=== PATIENT | male | born 1970 | race Caucasian/White ===

== ENCOUNTER 2022-10-21 21:48 | Inpatient (IN) ==
[2022-10-21] MEDS ORDERED: SODIUM CHLORIDE 0.9% 1000ML 1,000 ML IV ONE (22:09)
[2022-10-21] MEDS ORDERED: ONDANSETRON INJ 2 MG/ML 2 ML VIAL IV STA (22:10)
[2022-10-21] MEDS ORDERED: fentaNYL citrate 100 MCG/2 ML VIAL IV STA (22:10)
[2022-10-21] MEDS ORDERED: SODIUM CHLORIDE 0.9% 1000ML 1,000 ML IV SCH (22:15)
--- NOTE | 2022-10-21 22:19 | Emergency Department Note ---
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 Patient states is not responded to chemo and he received this oncologist next week at [facility] to discuss other options. He comes in tonight as he feels extremely dehydrated and has not been able to swallow. He keeps on vomiting everything up. This appears to be new. He states his abdominal pain is gotten worse since last ER visit. Palpation makes it worse nothing makes it better. Patient denies chest pain, fevers, neck stiffness, flulike illness. is present to also give the history. Home Medications Medication Instructions Recorded Confirmed Type lisinopril 20 mg tablet 20 mg PO DAILY 05/21/22 05/21/22 History Allergies Allergy/AdvReac Type Severity Reaction Status Date / Time No Known Allergies Allergy Verified 05/21/22 10:13 Past Med/Surg History Medical History Umbilical hernia Family History Father Prostate cancer Social History Smoking Status: Never smoker Hx Alcohol Use: Yes Preferred Language: Polish marital status: current occupational status: employed current occupation: [employer] Feels Safe at Home: Yes Review of Systems A total of 10 systems reviewed and were otherwise negative Physical Exam Vital Signs Vital Signs - 24 hr 10/21/22 21:49 10/21/22 22:21 10/21/22 23:18 Pulse Rate 107 H Pulse Rate from SpO2 Sensor Pulse Rhythm Regular Pulse Strength Normal Respiratory Rate 19 Respiratory Effort / Characteristics Non-Labored Spontaneous Respiratory Depth Normal Respiratory Pattern Regular Blood Pressure 79/55 L Blood Pressure Mean 63 Pulse Oximetry 99 Oxygen Delivery Method Room Air Room Air Room Air Sepsis Recent Fever Within 48 Hours No Sepsis New/Unexplained Change in Mental Status N/A Sepsis Action Taken by Nursing No Action Required 10/21/22 22:02 10/21/22 22:30 10/21/22 22:42 Pulse Rate 107 H 113 H 104 H Pulse Rate from SpO2 Sensor 107 H 110 H 104 H Pulse Rhythm Pulse Strength Respiratory Rate 17 22 15 Respiratory Effort / Characteristics Respiratory Depth Respiratory Pattern Blood Pressure Blood Pressure Mean Pulse Oximetry 98 97 95 Oxygen Delivery Method Sepsis Recent Fever Within 48 Hours Sepsis New/Unexplained Change in Mental Status Sepsis Action Taken by Nursing 10/21/22 22:42 10/21/22 23:00 10/22/22 00:17 Pulse Rate 99 H Pulse Rate from SpO2 Sensor 99 H Pulse Rhythm Pulse Strength Respiratory Rate 18 Respiratory Effort / Characteristics Non-Labored Spontaneous Accessory Muscle Use Respiratory Depth Respiratory Pattern Blood Pressure 133/80 101/75 Blood Pressure Mean 97 83 Pulse Oximetry 96 Oxygen Delivery Method Sepsis Recent Fever Within 48 Hours Sepsis New/Unexplained Change in Mental Status Sepsis Action Taken by Nursing 10/21/22 23:30 10/22/22 00:00 10/22/22 00:38 Pulse Rate 93 H 94 H 100 H Pulse Rate from SpO2 Sensor 96 H 95 H Pulse Rhythm Pulse Strength Respiratory Rate 14 21 8 L Respiratory Effort / Characteristics Respiratory Depth Respiratory Pattern Blood Pressure 116/86 Blood Pressure Mean 96 Pulse Oximetry 98 100 Oxygen Delivery Method Sepsis Recent Fever Within 48 Hours Sepsis New/Unexplained Change in Mental Status Sepsis Action Taken by Nursing VITALS: Vitals are noted on the nurse's note and reviewed by myself. Vital signs hypertensive and tachycardic. GENERAL: Pale cachectic appearing gentleman who appears in pain SKIN: The skin was without rashes, erythema, edema, or bruising. There is no tenting of the skin. Capillary reflex less than 2 seconds. HEAD: Normocephalic atraumatic. EARS: External auditory canals clear, EYES: Pupils equal round and reactive to light and accommodation. Conjunctivae without injection, sclerae without icterus. Extraocular movements intact. NOSE: Patent, turbinates without inflammation or discharge. MOUTH: Mucous membranes moist. Pharynx without erythema or exudate. Uvula midline. Airway patent. Tongue does not deviate. NECK: Supple without nuchal rigidity. No lymphadenopathy. No thyromegaly. Cervical spine is nontender. No JVD. HEART: Regular rate and rhythm LUNGS: Clear to auscultation bilaterally without wheezes, rales or rhonchi. No retractions or accessory muscle use. ABDOMEN: Positive bowel sounds x 4. Normal tympanic percussion. Soft, biliary drain intact, diffusely tender to palpation with increased pain on the left abdomen. Flores sign negative. No guarding or rebound tenderness. No CVA tenderness MUSCULOSKELETAL: No muscle atrophy, erythema, or edema noted. NEURO: Patient was alert and oriented to person place and time. Normal sensation to light and sharp touch. No focal neurological deficits. Course Administered Medications Fentanyl Citrate (Fentanyl Citrate 100 Mcg/2 Ml Vial) 50 mcg IV Q15M PRN PRN Reason: Pain Stop: 11/05/22 00:55 Last Admin: 10/22/22 01:23 Dose: 50 mcg Documented By: KALEY Discontinued Medications Dextrose (Dextrose 50% 50 Ml Syringe) 50 ml IV NOW STA Stop: 10/22/22 00:18 Last Admin: 10/22/22 01:25 Dose: 50 ml Documented By: KALEY Fentanyl Citrate (Fentanyl Citrate 100 Mcg/2 Ml Vial) 50 mcg IV NOW STA Stop: 10/21/22 22:11 Last Admin: 10/21/22 22:35 Dose: 50 mcg Documented By: KALEY Sodium Chloride (Nss 1000ml) 1,000 mls @ 999 mls/hr IV .Q1H1M NOEMÍ Stop: 10/21/22 23:15 Last Admin: 10/21/22 22:36 Dose: 999 mls/hr Documented By: KALEY Sodium Chloride (Nss 1000ml) 1,000 mls @ 999 mls/hr IV .Q1H1M ONE Stop: 10/21/22 23:09 Last Admin: 10/21/22 22:36 Dose: 999 mls/hr Documented By: KALEY Insulin Human Regular 10 units (/ Syringe) 9.9 mls @ 3 mls/sec IV ONE STA Stop: 10/22/22 00:18 Last Admin: 10/22/22 01:24 Dose: 3 mls/sec Documented By: KALEY Co-signed By: Ioversol (Optiray 350 100ml) 100 ml IV ONCE ONE Stop: 10/22/22 00:46 Last Admin: 10/22/22 00:46 Dose: 86 ml Documented By: DOROTEO Ondansetron HCl (Ondansetron Inj 2 Mg/Ml 2 Ml Vial) 4 mg IV NOW STA Stop: 10/21/22 22:11 Last Admin: 10/21/22 22:35 Dose: 4 mg Documented By: KALEY Medical Decision Making Medical Records Attestation: I reviewed the patient's medical records. Home Medications Current Medication List: was personally reviewed by me Laboratory Data Attestation: I reviewed the patient's lab results. 10/21/22 22:30 10/22/22 00:09 Lab Results 10/21/22 10/21/22 10/21/22 Range/Units 22:30 22:30 22:30 WBC 4.19 L (4.8-10.8) K/ul RBC 4.37 L (4.70-6.10) M/uL Hgb 13.1 L (14.0-18.0) g/dl POC Hgb (14.0-18.0) g/dl Hct 38.1 L (42.0-52.0) % POC Hct (42-52) % MCV 87.2 (80.0-100.0) fL MCH 30.0 (25.0-34.0) pg MCHC 34.4 (32.0-36.0) g/dL RDW Std Deviation 50.1 H (36.4-46.3) fL RDW Coeff of Liliana 15.7 H (11.5-14.5) % Plt Count 423 H (130-400) K/uL MPV 10.2 (9.4-12.4) fL Immature Gran % (Auto) 1.4 % Neut % (Auto) 64.8 % Lymph % (Auto) 7.6 % Baker % (Auto) 25.3 % Eos % (Auto) 0.2 % Baso % (Auto) 0.7 % Neut # (Auto) 2.71 (1.40-6.50) K/uL Lymph # (Auto) 0.32 L (1.2-3.4) K/uL Baker # (Auto) 1.06 H (0.11-0.59) K/uL Eos # (Auto) 0.01 (0-0.50) K/uL Baso # (Auto) 0.03 (0-0.2) K/uL Immature Gran # (Auto) 0.06 (0.01-0.20) K/uL PT 13.4 H (9.0-12.0) Seconds INR 1.3 H (0.9-1.1) APTT 33.0 H (21.0-31.0) Seconds PTT Ratio 1.2 POC Sodium (135-144) mmol/L Sodium 127 L (136-145) mmol/L POC Potassium (3.3-5.0) mmol/L Potassium 6.8 H* (3.5-5.1) mmol/L POC Chloride (101-112) mmol/L Chloride 102 (98-107) mmol/L Carbon Dioxide 15 L (21-32) mmol/L POC Total CO2 (24-31) mmol/L Anion Gap 10 (3-11) POC Anion Gap (16-25) mmol/L POC BUN (7-18) mg/dl BUN 37 H (6-23) mg/dl Creatinine 1.63 H (0.6-1.4) mg/dl POC Creatinine (0.6-1.3) mg/dl Est Cr Clr Drug Dosing 55.4 ml/min Est GFR ( Amer) 55.7 ml/min Est GFR (Non-Af Amer) 48.1 ml/min BUN/Creatinine Ratio 22.7 H (10-20) Glucose 132 H (70-99(Fasting)) mg/dl POC Glucose (other) (70-99) mg/dl Lactate (0.4-2.0) mmol/L Calcium 10.0 (8.5-10.1) mg/dl POC Ioniz Calcium Eusebio (1.12-1.32) mmol/l Magnesium 2.7 H (1.7-2.4) mg/dl Total Bilirubin 1.2 H (0.2-1.0) mg/dl Direct Bilirubin 0.6 H (0-0.2) mg/dl AST 28 (13-39) U/L ALT 57 H (7-52) U/L Alkaline Phosphatase 366 H (34-104) U/L Troponin I High Sens 12.6 (0-20) pg/ml Total Protein 9.2 H (6.0-8.3) gm/dl Albumin 4.5 (3.4-5.0) gm/dl Procalcitonin (0-0.5) ng/ml SARS-CoV-2, RNA, NAAT (NEGATIVE) 10/21/22 10/21/22 10/21/22 Range/Units 22:30 22:30 23:15 WBC (4.8-10.8) K/ul RBC (4.70-6.10) M/uL Hgb (14.0-18.0) g/dl POC Hgb (14.0-18.0) g/dl Hct (42.0-52.0) % POC Hct (42-52) % MCV (80.0-100.0) fL MCH (25.0-34.0) pg MCHC (32.0-36.0) g/dL RDW Std Deviation (36.4-46.3) fL RDW Coeff of Liliana (11.5-14.5) % Plt Count (130-400) K/uL MPV (9.4-12.4) fL Immature Gran % (Auto) % Neut % (Auto) % Lymph % (Auto) % Baker % (Auto) % Eos % (Auto) % Baso % (Auto) % Neut # (Auto) (1.40-6.50) K/uL Lymph # (Auto) (1.2-3.4) K/uL Baker # (Auto) (0.11-0.59) K/uL Eos # (Auto) (0-0.50) K/uL Baso # (Auto) (0-0.2) K/uL Immature Gran # (Auto) (0.01-0.20) K/uL PT (9.0-12.0) Seconds INR (0.9-1.1) APTT (21.0-31.0) Seconds PTT Ratio POC Sodium (135-144) mmol/L Sodium (136-145) mmol/L POC Potassium (3.3-5.0) mmol/L Potassium (3.5-5.1) mmol/L POC Chloride (101-112) mmol/L Chloride (98-107) mmol/L Carbon Dioxide (21-32) mmol/L POC Total CO2 (24-31) mmol/L Anion Gap (3-11) POC Anion Gap (16-25) mmol/L POC BUN (7-18) mg/dl BUN (6-23) mg/dl Creatinine (0.6-1.4) mg/dl POC Creatinine (0.6-1.3) mg/dl Est Cr Clr Drug Dosing ml/min Est GFR ( Amer) ml/min Est GFR (Non-Af Amer) ml/min BUN/Creatinine Ratio (10-20) Glucose (70-99(Fasting)) mg/dl POC Glucose (other) (70-99) mg/dl Lactate 1.2 (0.4-2.0) mmol/L Calcium (8.5-10.1) mg/dl POC Ioniz Calcium Eusebio (1.12-1.32) mmol/l Magnesium (1.7-2.4) mg/dl Total Bilirubin (0.2-1.0) mg/dl Direct Bilirubin (0-0.2) mg/dl AST (13-39) U/L ALT (7-52) U/L Alkaline Phosphatase (34-104) U/L Troponin I High Sens (0-20) pg/ml Total Protein (6.0-8.3) gm/dl Albumin (3.4-5.0) gm/dl Procalcitonin 0.56 H (0-0.5) ng/ml SARS-CoV-2, RNA, NAAT NEGATIVE (NEGATIVE) 10/22/22 10/22/22 Range/Units 00:09 00:14 WBC (4.8-10.8) K/ul RBC (4.70-6.10) M/uL Hgb (14.0-18.0) g/dl POC Hgb 9.9 L (14.0-18.0) g/dl Hct (42.0-52.0) % POC Hct 29 L (42-52) % MCV (80.0-100.0) fL MCH (25.0-34.0) pg MCHC (32.0-36.0) g/dL RDW Std Deviation (36.4-46.3) fL RDW Coeff of Liliana (11.5-14.5) % Plt Count (130-400) K/uL MPV (9.4-12.4) fL Immature Gran % (Auto) % Neut % (Auto) % Lymph % (Auto) % Baker % (Auto) % Eos % (Auto) % Baso % (Auto) % Neut # (Auto) (1.40-6.50) K/uL Lymph # (Auto) (1.2-3.4) K/uL Baker # (Auto) (0.11-0.59) K/uL Eos # (Auto) (0-0.50) K/uL Baso # (Auto) (0-0.2) K/uL Immature Gran # (Auto) (0.01-0.20) K/uL PT (9.0-12.0) Seconds INR (0.9-1.1) APTT (21.0-31.0) Seconds PTT Ratio POC Sodium 133 L (135-144) mmol/L Sodium 130 L (136-145) mmol/L POC Potassium 6.1 H* (3.3-5.0) mmol/L Potassium 6.0 H (3.5-5.1) mmol/L POC Chloride 112 (101-112) mmol/L Chloride 110 H (98-107) mmol/L Carbon Dioxide 14 L (21-32) mmol/L POC Total CO2 14 L (24-31) mmol/L Anion Gap 6 (3-11) POC Anion Gap 14.0 L (16-25) mmol/L POC BUN 32 H (7-18) mg/dl BUN 34 H (6-23) mg/dl Creatinine 1.24 D (0.6-1.4) mg/dl POC Creatinine 1.4 H (0.6-1.3) mg/dl Est Cr Clr Drug Dosing 72.8 ml/min Est GFR ( Amer) 77.5 ml/min Est GFR (Non-Af Amer) 66.9 ml/min BUN/Creatinine Ratio 27.4 H (10-20) Glucose 126 H (70-99(Fasting)) mg/dl POC Glucose (other) 134 H (70-99) mg/dl Lactate (0.4-2.0) mmol/L Calcium 8.1 L (8.5-10.1) mg/dl POC Ioniz Calcium Eusebio 1.22 (1.12-1.32) mmol/l Magnesium (1.7-2.4) mg/dl Total Bilirubin (0.2-1.0) mg/dl Direct Bilirubin (0-0.2) mg/dl AST (13-39) U/L ALT (7-52) U/L Alkaline Phosphatase (34-104) U/L Troponin I High Sens (0-20) pg/ml Total Protein (6.0-8.3) gm/dl Albumin (3.4-5.0) gm/dl Procalcitonin (0-0.5) ng/ml SARS-CoV-2, RNA, NAAT (NEGATIVE) Imaging Data Attestation: I personally reviewed and interpreted this imaging study as follows: MDM Narrative Prior records/ancillary studies reviewed and summarized above. Nursing notes reviewed. Additional history obtained from family. The patient's history was concerning for severe dysphagia, nausea vomiting, cancer patient. Differential diagnosis: Etiologies such as metabolic, infection, hypo/hyperglycemia, electrolyte abnormalities, cardiac sources, intracerebral event, toxicologic, neurologic, as well as others were entertained. Physical examination: As above. ER treatment provided: IV Lock An order was placed for continuous cardiac monitoring. The monitor shows a rate of [] with a [] rhythm per my interpretation. IV fluids, fentanyl, Zofran. Dextrose and insulin were given for hyperkalemia On reassessment the patient felt better. Diagnostics interpretation by me: ECG: Ordered for pain and independently interpreted by myself EKG: Normal sinus, poor baseline, no acute ST-T wave changes. No peaked T waves. Impression normal sinus rhythm interpreted by myself I think arrhythmia is unlikely. EKG shows normal sinus rhythm with no interval abnormalities such as QT prolongation or WPW. There are no findings to suggest Brugada syndrome. Cardiac monitoring in the emergency department reveals no tachycardic or bradycardic dysrhythmia. Hypertrophic cardiomyopathy was considered but there are no clear historical elements pointing toward this. EKG is not suggestive. The QRS voltage is not extremely large and there are no suggestive Q waves. The labs Independently Interpreted by myself revealed hyperkalemia and repeat K was ordered and was still high but not as high. Patient was given dextrose and insulin for this. He had no EKG changes No worrisome leukocytosis. Elevated creatinine concerning for acute kidney injury. Imaging studies: Chest x-ray with no acute consolidation, pneumothorax or free air per my interpretation CT NECK: No evidence of acute cervical soft tissue pathology. There is a retention cyst in the right sphenoid sinus. Otherwise the visualized paranasal sinuses are clear. No evidence of active dental disease. The visualized intracranial contents are unremarkable. There is normal enhancement of the cervical vessels. There is a left brachial approach PICC line in place.. No comparisons. Radiologist: Guerline Small MD CT ABDOMEN & PELVIS With Contrast: Large lobulated heterogeneously enhancing mass lesion is present in the right upper quadrant. This measures overall up to 14 x 14 cm in transverse plane although its lobulated contour precludes accurate size assessment. This extends into the region of the terry hepatis with direct hepatic invasion. The IVC a ppears to be at points deviated and at points invaded. The right kidney is involved. The duodenum has mass-effect exerted on it and may be involved however there is no evidence for gastric dilatation. The right adrenal gland appears to be spared. Findings compatible with the reported history of sarcoma. Percutaneous transhepatic biliary drainage catheter in place extending into the duodenum via the left lobe Left lateral basilar subpleural nodule measures 7 mm and requires follow-up according to institutional protocol Radiologist: Aaron Jackson MD Consultation: A consultation was placed with the hospitalist. The case was discussed and diagnostics were reviewed. The patient was evaluated in the ER for further treatment. Exam and history seem consistent with dehydration, acute kidney injury and hyperkalemia. Patient has Sarcoma that is worsening. Patient states he is unable to swallow and has been vomiting so advanced imaging was ordered. No signs of airway obstruction. Patient's potassium was quite high and he was given dextrose and insulin. Repeat labs improved. His kidney function was elevated which improved with hydration. Medicine was consulted and the case was discussed. He will be admitted to the medical service for acute kidney injury, dehydration, hyperkalemia and with progression of his cancer. By the evaluation outlined above emergent etiologies such as cardiac sources, intracerebral event, toxologic, neurologic, abnormalities blood glucose, metabolic, as well as others were deemed relatively unlikely. The pt informed about the findings as listed above. All questions were answered and pleased with the treatment. The chart was completed utilizing [employer] Speech voice recognition software. Grammatical errors, random word insertions, pronoun errors, and incomplete sentences are an occassional consequence of this system due to software limitations, ambient noise, and hardware issues. Any formal questions or concerns about the content, text, or information contained within the body of this dictation should be directly addressed to the physician call center assistant for clarification. Impression & Plan Dehydration, Acute kidney injury, Acute hyperkalemia, Nausea & vomiting, Sarcoma Discharge Plan Visit Data Chief Complaint: Dehydration Stated Complaint: SEVERE DEHYDRATION, SWALLOWING ISSUES ED Provider: Cristian Trujillo ED Midlevel Provider: Leigh Ann Gonzalez Discharge Problem: Dehydration, Acute kidney injury, Acute hyperkalemia, Nausea & vomiting, Sarcoma Patient Disposition: Admitted As Inpatient Condition: Fair Forms Stand Alone Forms: [facility] Prescriptions Prescriptions: No Action lisinopril 20 mg tablet 20 mg PO DAILY Referrals Referrals: Jessica Clay CRNP [Primary Care Provider] -
[2022-10-21 22:59] LABS: Basophils # (auto) 0.03 K/uL (0-0.2); Basophils % (auto) 0.7 %; Eosinophils # (auto) 0.01 K/uL (0-0.50); Eosinophils % (auto) 0.2 %; Hematocrit (blood only) 38.1 % (42.0-52.0); Hemoglobin 13.1 g/dl (14.0-18.0); Immature Granulocytes # (auto) 0.06 K/uL (0.01-0.20); Immature Granulocytes % (auto) 1.4 %; Lymphocytes # (auto) 0.32 K/uL (1.2-3.4); Lymphocytes % (auto) 7.6 %; Mean Corpuscular Hgb Conc 34.4 g/dL (32.0-36.0); Mean Corpuscular Volume 87.2 fL (80.0-100.0); Mean Platelet Volume 10.2 fL (9.4-12.4); Monocytes # (auto) 1.06 K/uL (0.11-0.59); Monocytes % (auto) 25.3 %; Neutrophils # (auto) 2.71 K/uL (1.40-6.50); Neutrophils % (auto) 64.8 %; Platelet Count 423 K/uL (130-400); RDW Coefficient of Variation 15.7 % (11.5-14.5); RDW Standard Deviation 50.1 fL (36.4-46.3); Red Blood Count 4.37 M/uL (4.70-6.10); White Blood Count 4.19 K/ul (4.8-10.8)
[2022-10-21 23:11] LABS: INR 1.3 (0.9-1.1); Partial Thromboplastin Ratio 1.2; Prothrombin Time 13.4 Seconds (9.0-12.0)
[2022-10-21 23:34] LABS: Troponin I High Sensitivity 12.6 pg/ml (0-20)
[2022-10-21 23:37] LABS: Albumin Level 4.5 gm/dl (3.4-5.0); BUN Creatinine Ratio 22.7 (10-20); Bilirubin Direct 0.6 mg/dl (0-0.2); Bilirubin,Total 1.2 mg/dl (0.2-1.0); Creatinine Clr Calc Pharmacy 55.4 ml/min; Est GFR (African American) 55.7 ml/min; Est GFR (Non-African American) 48.1 ml/min; Magnesium 2.7 mg/dl (1.7-2.4); Potassium 6.8 mmol/L (3.5-5.1); Total Protein 9.2 gm/dl (6.0-8.3)
[2022-10-22] MEDS ORDERED: INSULIN HUMAN REGULAR PER UNIT 10 UNITS in SYRINGE 9.9 ML IV STA (00:17)
[2022-10-22] MEDS ORDERED: DEXTROSE 50% 50 ML SYRINGE IV STA (00:17)
[2022-10-22 00:28] LABS: iSTAT Creatinine 1.4 mg/dl (0.6-1.3); iSTAT Hemoglobin 9.9 g/dl (14.0-18.0); iSTAT Ionized Calcium 1.22 mmol/l (1.12-1.32); iSTAT Potassium 6.1 mmol/L (3.3-5.0)
[2022-10-22] MEDS ORDERED: OPTIRAY 350 100ml IV ONE (00:45)
[2022-10-22 00:49] LABS: Calcium 8.1 mg/dl (8.5-10.1)
[2022-10-22 00:54] LABS: BUN Creatinine Ratio 27.4 (10-20); Creatinine Clr Calc Pharmacy 72.8 ml/min; Est GFR (African American) 77.5 ml/min; Est GFR (Non-African American) 66.9 ml/min
[2022-10-22] MEDS ORDERED: fentaNYL citrate 100 MCG/2 ML VIAL IV PRN (00:56)
--- NOTE | 2022-10-22 02:30 | History & Physical Report ---
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 Potassium is elevated at 6 with some mild EKG changes. Patient does appear to have a nongapped metabolic acidosis with serum bicarb of 14. BUN is mildly elevated at 34, creatinine = 1.63 which is increased from patient's baseline of 0.92. Suspect poor p.o. intake. Patient is on potassium supplementation as well. He has been given insulin and dextrose as well as 2 L of normal saline. 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 He follows with [facility] [place] and is to begin a new chemotherapy regimen tomorrow 10/23/22. 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 He has a biliary drain in place. He follows predominantly at [facility] under Dr. Castillo and is occasionally seen at [facility] in [place]. Patient was previously on a sarcoma chemotherapy regimen with Doxorubicin/Ifosfamide and Mesna - last treatment 10/02/22 - 10/07/22. Unfortunately, his tumor has stopped responding to this regimen. He is scheduled at [facility] [place] on 10/23/22 to initiate a new chemotherapy regimen. Patient presents with several days of not feeling well. Generalized weakness, nausea, dysphagia to both solids and liquids. He has not been eating or drinking much. He has chronic, stable abdominal pain. Denies chest pain, cough, SOB. Denies fever, chills, vomiting or diarrhea. He reports normal UOP although dark in color. No additional complaints at this time. In the ER he is afebrile, HD stable, NAD. No respiratory complaints, adequate oxygenation on room air. ER Course: Dextrose 50 + Insulin 10u, Fentanyl 50mcg x 2, NSS x 2L, Zofran 4mg IV Allergies Allergy/AdvReac Type Severity Reaction Status Date / Time No Known Allergies Allergy Verified 05/21/22 10:13 Home Medications Medication Instructions Recorded Confirmed Type lisinopril 20 mg tablet 20 mg PO DAILY 05/21/22 05/21/22 History Past Med/Surg History Medical History High cholesterol HTN (hypertension) Sarcoma abdominal sarcoma diagnosed 04/2022 Umbilical hernia Family History Father Prostate cancer Social History Smoking Status: Never smoker Hx Alcohol Use: Yes Preferred Language: Israeli marital status: current occupational status: employed current occupation: [employer] Feels Safe at Home: Yes Review of Systems Review of Systems: All systems reviewed & are unremarkable except as noted in HPI & below Physical Exam Physical Exam: General: patient resting comfortably, NAD, ill in appearance, answers questions appropriately and following commands Skin: warm, dry, intact, no rashes or lesions HEENT: NC/AT, PERRL, EOMI, anicteric sclera, conjunctiva without injection, external ear normal to inspection and nontender, nares patent, dry mucus membranes, dentition intact, no oropharyngeal lesions, neck supple, trachea midline, no LAD, no thyromegaly, no JVD Heart: +S1/S2, regular, no m/r/g Lungs: equal air entry bilaterally, no rales/rhonchi/wheezes Abd: +BS, soft, diffusely tender to palpation without rebound/guarding/peritonitis, biliary drain present mid-abdomen with dressing in place, c/d/i Ext: warm, 2+ pulses in UE/LE bilaterally, no clubbing/cyanosis or edema, PICC line LUE Neuro: nonfocal, patient AA&O x 4, speech intact, no facial droop, moving all extremities on command with equal strength 5/5 Results & Data Results & Data ([facility]) Vital Signs (Past 12 Hours) Vital Signs Pulse Resp BP Pulse Ox O2 Del Method 10/22/22 00:38 100 H 8 L 10/22/22 00:00 94 H 21 100 10/21/22 23:30 93 H 14 116/86 98 10/21/22 23:00 99 H 18 101/75 96 10/21/22 22:42 133/80 10/21/22 22:42 104 H 15 95 10/21/22 22:30 113 H 22 97 10/21/22 22:02 107 H 17 98 10/21/22 23:18 Room Air 10/21/22 22:21 Room Air 10/21/22 21:49 107 H 19 79/55 L 99 Room Air Laboratory Results Laboratory Results WBC 4.19 K/ul (4.8-10.8) L 10/21/22 22:30 RBC 4.37 M/uL (4.70-6.10) L 10/21/22 22:30 Hgb 13.1 g/dl (14.0-18.0) L 10/21/22 22:30 POC Hgb 9.9 g/dl (14.0-18.0) L 10/22/22 00:14 Hct 38.1 % (42.0-52.0) L 10/21/22 22:30 POC Hct 29 % (42-52) L 10/22/22 00:14 MCV 87.2 fL (80.0-100.0) 10/21/22 22:30 MCH 30.0 pg (25.0-34.0) 10/21/22 22:30 MCHC 34.4 g/dL (32.0-36.0) 10/21/22 22:30 RDW Std Deviation 50.1 fL (36.4-46.3) H 10/21/22 22:30 RDW Coeff of Liliana 15.7 % (11.5-14.5) H 10/21/22 22:30 Plt Count 423 K/uL (130-400) H 10/21/22 22:30 MPV 10.2 fL (9.4-12.4) 10/21/22 22:30 Immature Gran % (Auto) 1.4 % 10/21/22 22:30 Neut % (Auto) 64.8 % 10/21/22 22:30 Lymph % (Auto) 7.6 % 10/21/22 22:30 [place] % (Auto) 25.3 % 10/21/22 22:30 Eos % (Auto) 0.2 % 10/21/22 22:30 Baso % (Auto) 0.7 % 10/21/22 22:30 Neut # (Auto) 2.71 K/uL (1.40-6.50) 10/21/22 22:30 Lymph # (Auto) 0.32 K/uL (1.2-3.4) L 10/21/22 22:30 [place] # (Auto) 1.06 K/uL (0.11-0.59) H 10/21/22 22:30 Eos # (Auto) 0.01 K/uL (0-0.50) 10/21/22 22:30 Baso # (Auto) 0.03 K/uL (0-0.2) 10/21/22 22:30 Immature Gran # (Auto) 0.06 K/uL (0.01-0.20) 10/21/22 22:30 PT 13.4 Seconds (9.0-12.0) H 10/21/22 22:30 INR 1.3 (0.9-1.1) H 10/21/22 22:30 APTT 33.0 Seconds (21.0-31.0) H 10/21/22 22:30 PTT Ratio 1.2 10/21/22 22:30 POC Sodium 133 mmol/L (135-144) L 10/22/22 00:14 Sodium 130 mmol/L (136-145) L 10/22/22 00:09 POC Potassium 6.1 mmol/L (3.3-5.0) H* 10/22/22 00:14 Potassium 6.0 mmol/L (3.5-5.1) H 10/22/22 00:09 POC Chloride 112 mmol/L (101-112) 10/22/22 00:14 Chloride 110 mmol/L (98-107) H 10/22/22 00:09 Carbon Dioxide 14 mmol/L (21-32) L 10/22/22 00:09 POC Total CO2 14 mmol/L (24-31) L 10/22/22 00:14 Anion Gap 6 (3-11) 10/22/22 00:09 POC Anion Gap 14.0 mmol/L (16-25) L 10/22/22 00:14 POC BUN 32 mg/dl (7-18) H 10/22/22 00:14 BUN 34 mg/dl (6-23) H 10/22/22 00:09 Creatinine 1.24 mg/dl (0.6-1.4) D 10/22/22 00:09 POC Creatinine 1.4 mg/dl (0.6-1.3) H 10/22/22 00:14 Est Cr Clr Drug Dosing 72.8 ml/min 10/22/22 00:09 Est GFR ( Amer) 77.5 ml/min 10/22/22 00:09 Est GFR (Non-Af Amer) 66.9 ml/min 10/22/22 00:09 BUN/Creatinine Ratio 27.4 (10-20) H 10/22/22 00:09 Glucose 126 mg/dl (70-99(Fasting)) H 10/22/22 00:09 POC Glucose 116 mg/dl (70-99) H 10/22/22 02:16 POC Glucose (other) 134 mg/dl (70-99) H 10/22/22 00:14 Lactate 1.2 mmol/L (0.4-2.0) 10/21/22 22:30 Calcium 8.1 mg/dl (8.5-10.1) L 10/22/22 00:09 POC Ioniz Calcium Eusebio 1.22 mmol/l (1.12-1.32) 10/22/22 00:14 Magnesium 2.7 mg/dl (1.7-2.4) H 10/21/22 22:30 Total Bilirubin 1.2 mg/dl (0.2-1.0) H 10/21/22 22:30 Direct Bilirubin 0.6 mg/dl (0-0.2) H 10/21/22 22:30 AST 28 U/L (13-39) 10/21/22 22:30 ALT 57 U/L (7-52) H 10/21/22 22:30 Alkaline Phosphatase 366 U/L (34-104) H 10/21/22 22:30 Troponin I High Sens 12.6 pg/ml (0-20) 10/21/22 22:30 Total Protein 9.2 gm/dl (6.0-8.3) H 10/21/22 22:30 Albumin 4.5 gm/dl (3.4-5.0) 10/21/22 22:30 Procalcitonin 0.56 ng/ml (0-0.5) H 10/21/22 22:30 SARS-CoV-2, RNA, NAAT NEGATIVE (NEGATIVE) 10/21/22 23:[address] of the abdomen and pelvis with contrastPer stat read: Large lobulated heterogenous enhancing mass lesion is present in the right upper quadrant. This measures overall up to 14 x 14 cm in transverse plane although its lobulated contour precludes accurate size assessment. This extends into the region of the terry hepatis with direct hepatic invasion. The IVC appears to be at points deviated and it points invaded. The right kidney is involved. Duodenum has mass affect exerted on it and may be involved however there is no evidence for gastric dilatation. The right adrenal gland appears to be spared. Findings can patible with the reported history of sarcoma. Percutaneous transhepatic biliary drainage catheter in place extending into the duodenum via the left lobe. Left lateral basilar subpleural nodules measuring 7 mm and requires follow-up according to institutional protocol CT neck: Per stat readno evidence of acute cervical soft tissue pathology. The re is retention cyst in the right sphenoid sinus. Otherwise the visualized paranasal sinuses are clear. No evidence of active dental disease. The visualized intracranial contents are unremarkable. There is normal enhancement of the cervical vessels. There is a left brachial approach PICC line in place. No comparisons. Chest x-rayby my comparisontrachea is midline and air-filled, normal cardiac shadow, elevation of the right hemidiaphragm, no pulmonary lesions/edema ECG Additional Comments: EKG with sinus rhythm at 99 bpm, GA = 142, QRS = 94, QTc = 415 some enlargement of T waves present. No studies available for comparison Code Status & VTE Plan VTE Prophylaxis Plan VTE Prophylaxis will be ordered: Yes PG Care Time/CCT Total # of Minutes Spent Total Time Spent with Patient: Total time spent is greater than 50% in coordination of care (as documented) at patient's floor/unit and/or counseling patient: Coding Level of Care Code 28000 INT INP/OBS CARE 2/55MIN Diagnoses Acute hyperkalemia E87.5 Sarcoma C49.9
[2022-10-22 04:03] LABS: Calcium 8.7 mg/dl (8.5-10.1); Potassium 5.8 mmol/L (3.5-5.1)
[2022-10-22 04:09] LABS: BUN Creatinine Ratio 24.1 (10-20); Creatinine Clr Calc Pharmacy 67.8 ml/min; Est GFR (African American) 71.2 ml/min; Est GFR (Non-African American) 61.5 ml/min
[2022-10-22] MEDS ORDERED: POLYETHYLENE (MIRALAX) 17 GM PACK PO PRN (04:45)
[2022-10-22] MEDS ORDERED: ONDANSETRON INJ 2 MG/ML 2 ML VIAL IV PRN (04:45)
[2022-10-22] MEDS ORDERED: ACETAMINOPHEN 325 MG TAB PO PRN (04:45)
[2022-10-22] MEDS: SODIUM CHLORIDE 0.9% 1000ML 1,000 ML IV SCH ×2 (05:08→13:13)
[2022-10-22 05:22] LABS: Appearance Urine Clear (Clear); Bilirubin Urine Negative (Negative); Blood Urine Trace-intact (Negative); Color Urine Yellow; Glucose Urine UA Trace (Negative); Ketones Urine Negative (Negative); Leukocyte Esterase Urine Negative (Negative); Nitrite Urine Negative (Negative); Protein Urine Negative (Negative); Specific Gravity Urine 1.015 (1.000-1.030); Urobilinogen Urine Negative (Negative)
[2022-10-22 05:31] LABS: Bacteria Urine Negative (Negative); Epithelial Cell Urine 0-5 /lpf (0-5); RBC Urine 0-4 /hpf (0-4); WBC Urine 0-5 /hpf (0-5)
[2022-10-22] MEDS: FIRST - Mouthwash BLM 119 ML PO PRN ×2 (05:36→19:33)
[2022-10-22] MEDS: ENOXAPARIN INJ 40 MG/0.4 ML SYR SQ SCH (05:36)
[2022-10-22 06:02] LABS: Calcium 9.2 mg/dl (8.5-10.1); Potassium 5.7 mmol/L (3.5-5.1)
[2022-10-22 06:08] LABS: Creatinine Clr Calc Pharmacy 72.8 ml/min; Est GFR (African American) 77.5 ml/min; Est GFR (Non-African American) 66.9 ml/min
--- NOTE | 2022-10-22 07:15 | CT Scan Report ---
CT soft tissue neck w con HISTORY: 52 years-old Male dysphagia, sarcoma acute dysphasia in a patient with history of sarcoma COMPARISON: CT abdomen and pelvis 10/22/2022 TECHNIQUE: Multiple axial CT images of the soft tissues of the neck were obtained following the intra venous administration of 86 mL Optiray 320. A dose lowering technique was used consistent with the pr incipals of WILLY. FINDINGS: There are 2 solid nodules within the right upper lobe measuring up to 4 mm. 6 mm subpleural solid nod ule of the apical posterior segment left upper lobe on image 280. Partially imaged left-sided PICC. The imaged intracranial structures demonstrate no acute abnormality. Unremarkable orbits and soft tis sues. Mild prominence of the right greater than left lingual tonsils. The epiglottis, glottis and sub glottic airway is within normal limits. No inflammatory changes or prevertebral edema identified. No acute fracture or destructive bone lesion identified. IMPRESSION: 1. No acute process identified involving the soft tissues of the neck. 2. No cervical chain lymphadenopathy. 3. Subcentimeter pulmonary nodules of the lung apices may represent pulmonary metastasis. 4. Mild asymmetric enlargement of the right greater than left lingual tonsils. If there is further cl inical concern, correlation with direct visualization may be considered. ACT 112: Negative or not required by law. The above report was generated using voice recognition software. It may contain grammatical, syntax o r spelling errors. Electronically signed by: Canelo Love M.D. 10/22/2022 7:12 AM
--- NOTE | 2022-10-22 07:50 | CT Scan Report ---
ABDOMEN AND PELVIS CT WITH IV CONTRAST CT DOSE: HISTORY: severe pain, sarcoma, n/v TECHNIQUE: Multiaxial CT images of the abdomen and pelvis were performed following the use of intrave nous contrast. A dose lowering technique was utilized adhering to the principles of ALARA. COMPARISON STUDY: Abdomen and pelvis CT 10/14/2022. FINDINGS: Imaged inferior cardiac chambers are unremarkable. Partially imaged catheter is noted with distal tip within the right atrium. Mild subsegmental right basilar atelectasis. There are new subcen timeter scattered bilateral solid nodules in the lung bases again noted. No pneumatosis or pneumoperi toneum. The spleen is enlarged, 13.9 cm. Unremarkable pancreas and adrenal glands. Heterogeneous mass with partially calcified components within the right upper quadrant abdomen measur es approximately 17 x 16 x 15 cm. This mass is again noted involving the right kidney with mass effe ct and possible invasion of the gallbladder. Possible invasion into the duodenum without obstruction. There is also mass effect with effacement of the IVC. A percutaneous drainage catheter is noted in t he liver into the biliary system with distal tip in the duodenum. There is mild intrahepatic biliary ductal dilation. There is mild inflammatory stranding trace fluid surrounding the large mass and also the catheter. Probable right renal cysts. No significant hydronephrosis. Urinary bladder wall thickening with parti al distention. Prostamegaly. No abdominal aortic aneurysm. No bowel obstruction or bowel wall thicken ing. Moderate colonic fecal retention. Colonic diverticulosis without acute diverticulitis. Normal ap pendix. Collateral vessels within the right abdomen. No acute fracture. No destructive bone lesion id entified. IMPRESSION: 1. Large mass within the abdominal right upper quadrant again noted and demonstrates invasion and mas s effect upon the adjacent structures as described above. 2. Percutaneous biliary drainage catheter is in place with distal tip terminating within the duodenum . 3. Subcentimeter pulmonary metastasis. 4. No bowel obstruction. 5. Additional findings as above. ACT 112: Negative or not required by law. Electronically signed by: Trevor Lemons M.D. 10/22/2022 7:49 AM
--- NOTE | 2022-10-22 08:37 | XRay Report ---
XR chest 1V portable HISTORY: Sepsis COMPARISON: None. FINDINGS: No pneumothorax. No pleural effusions. No focal lung consolidations to suggest a pneumonia. There is mild elevation the right hemidiaphragm. The patient's subcentimeter pulmonary nodules are b robert appreciated on the same day CT examinations. A left PICC terminates in the right atrium. A bili zohreh drainage catheters partially visualized within the upper abdomen. IMPRESSION: 1. No acute process within the chest. 2. The patient's known subcentimeter pulmonary nodules are better appreciated on the same day CT exam inations. 3. A left PICC terminates in the right atrium. ACT 112: Negative or not required by law. Electronically signed by: Trevor Lemons M.D. 10/22/2022 8:36 AM
[2022-10-22 09:45] LABS: Calcium 9.2 mg/dl (8.5-10.1); Potassium 5.9 mmol/L (3.5-5.1)
[2022-10-22 09:51] LABS: BUN Creatinine Ratio 24.2 (10-20); Creatinine Clr Calc Pharmacy 75.2 ml/min; Est GFR (African American) 80.7 ml/min; Est GFR (Non-African American) 69.6 ml/min
--- NOTE | 2022-10-22 10:02 | Electrocardiogram Report ---
Test Reason : Blood Pressure : / mmHG Vent. Rate : 099 BPM Atrial Rate : 099 BPM P-R Int : 142 ms QRS Dur : 094 ms QT Int : 324 ms P-R-T Axes : 053 025 055 degrees QTc Int : 415 ms Normal sinus rhythm Normal ECG No previous ECGs available Confirmed by Yeyo Rutledge ([id number]) on 10/22/2022 10:02:10 AM Referred By: REFERRED SELF Confirmed By:Yeyo Rutledge
[2022-10-22] MEDS: MoRPHine SULFATE 2 MG/ML CARP IV PRN ×2 (13:19→21:27)
[2022-10-22 13:58] LABS: Calcium 8.8 mg/dl (8.5-10.1); Potassium 5.7 mmol/L (3.5-5.1)
[2022-10-22 14:04] LABS: BUN Creatinine Ratio 23.3 (10-20); Creatinine Clr Calc Pharmacy 77.8 ml/min; Est GFR (Non-African American) 72.5 ml/min
[2022-10-22] MEDS: ACYCLOVIR 400 MG TAB PO SCH (19:30)
[2022-10-22] MEDS: CIPROFLOXACIN 500 MG TAB PO SCH (19:30)
[2022-10-22] MEDS: SODIUM ZIRCONIUM CYCLOSILICATE 10 GM PACKET PO SCH (21:27)
[2022-10-23] MEDS: ENOXAPARIN INJ 40 MG/0.4 ML SYR SQ SCH (05:33)
[2022-10-23] MEDS: MoRPHine SULFATE 2 MG/ML CARP IV PRN ×4 (05:33→23:31)
[2022-10-23 06:15] LABS: Hematocrit (blood only) 30.4 % (42.0-52.0); Hemoglobin 10.2 g/dl (14.0-18.0); Mean Corpuscular Hemoglobin 29.5 pg (25.0-34.0); Mean Corpuscular Hgb Conc 33.6 g/dL (32.0-36.0); Mean Corpuscular Volume 87.9 fL (80.0-100.0); Mean Platelet Volume 9.9 fL (9.4-12.4); Platelet Count 413 K/uL (130-400); RDW Standard Deviation 51.3 fL (36.4-46.3); Red Blood Count 3.46 M/uL (4.70-6.10); White Blood Count 3.94 K/ul (4.8-10.8)
[2022-10-23 06:24] LABS: BUN Creatinine Ratio 21.2 (10-20); Calcium 9.1 mg/dl (8.5-10.1); Creatinine Clr Calc Pharmacy 86.8 ml/min; Est GFR (African American) 95.9 ml/min; Est GFR (Non-African American) 82.7 ml/min
[2022-10-23] MEDS: ACYCLOVIR 400 MG TAB PO SCH ×2 (08:33→19:45)
[2022-10-23] MEDS: CIPROFLOXACIN 500 MG TAB PO SCH ×2 (08:33→19:45)
[2022-10-23] MEDS: SODIUM ZIRCONIUM CYCLOSILICATE 10 GM PACKET PO SCH (10:33)
[2022-10-23] MEDS: PANTOprazole 40 MG TAB PO SCH (11:48)
[2022-10-23] MEDS: FIRST - Mouthwash BLM 119 ML PO PRN (16:07)
--- NOTE | 2022-10-23 17:31 | Hospitalist Progress Note ---
Date of Service October 23, 2022 Assessment & Plan (1) Acute hyperkalemia: Plan: 52-year-old male with abdominal sarcoma presenting with several days of not feeling wellpoor oral intake, nausea and dysphagia. Potassium is elevated at 6 with some mild EKG changes. Patient does appear to have a nongapped metabolic acidosis with serum bicarb of 14. BUN is mildly elevated at 34, creatinine = 1.63 which is increased from patient's baseline of 0.92. Suspect poor p.o. intake. Patient is on potassium supplementation as well. He has been given insulin and dextrose as well as 2 L of normal saline. Patient admitted to the floor on , started on Lokelma, IV fluid, potassium currently is normalized at this 5, bicarb is slowly trending up today is 16. 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 He follows with [facility] [place] and supposedly to begin a new chemotherapy regimen on 10/23/22. I discussed with over the phone with her oncologist F/E/N - NSS at 125mL/hr x 2 liters, electrolytes WNL, Soft diet as tolerated with aspiration precautions Ppx - Lovenox Code - Full per discussion with family and patient Dispo - Admit to medical with telemetry Admission and Anticipated Discharge Date Admission Date: October 22, 2022 Physical Exam Physical Exam: General: patient resting comfortably, NAD, ill in appearance, answers questions appropriately and following commands Skin: warm, dry, intact, no rashes or lesions HEENT: NC/AT, PERRL, EOMI, anicteric sclera, conjunctiva without injection, external ear normal to inspection and nontender, nares patent, dry mucus membranes, dentition intact, no oropharyngeal lesions, neck supple, trachea midline, no LAD, no thyromegaly, no JVD Heart: +S1/S2, regular, no m/r/g Lungs: equal air entry bilaterally, no rales/rhonchi/wheezes Abd: +BS, soft, diffusely tender to palpation without rebound/guarding/peritonitis, biliary drain present mid-abdomen with dressing in place, c/d/i Ext: warm, 2+ pulses in UE/LE bilaterally, no clubbing/cyanosis or edema, PICC line LUE Neuro: nonfocal, patient AA&O x 4, speech intact, no facial droop, moving all extremities on command with equal strength 5/5 Results & Data Results & Data ([facility]) Vital Signs (Past 12 Hours) Vital Signs Temp Pulse Pulse Resp BP Pulse Ox O2 Del Method 10/23/22 15:17 36.3 C L 108 H 18 99/69 L 96 Room Air 10/23/22 11:14 36.8 C 100 H 99 H 18 108/72 99 Room Air 10/23/22 07:34 36.4 C L 96 H 16 111/70 98 Room Air PG Care Time/CCT Total # of Minutes Spent Total Time Spent with Patient: Total time spent is greater than 50% in coordination of care (as documented) at patient's floor/unit and/or counseling patient: Coding Level of Care Code 14718 SUB INP/OBS CARE 3/50MIN Diagnoses Acute hyperkalemia E87.5 Sarcoma C49.9
[2022-10-24] MEDS: ENOXAPARIN INJ 40 MG/0.4 ML SYR SQ SCH (06:19)
[2022-10-24 06:54] LABS: BUN Creatinine Ratio 20.3 (10-20); Calcium 9.7 mg/dl (8.5-10.1); Creatinine Clr Calc Pharmacy 73.4 ml/min; Est GFR (African American) 78.3 ml/min; Est GFR (Non-African American) 67.6 ml/min; Potassium 5.2 mmol/L (3.5-5.1)
[2022-10-24] MEDS: CIPROFLOXACIN 500 MG TAB PO SCH ×2 (08:41→22:26)
[2022-10-24] MEDS: ACYCLOVIR 400 MG TAB PO SCH ×2 (08:41→22:26)
[2022-10-24] MEDS: PANTOprazole 40 MG TAB PO SCH (08:41)
[2022-10-24] MEDS: FIRST - Mouthwash BLM 119 ML PO PRN (08:41)
[2022-10-24] MEDS: MoRPHine SULFATE 2 MG/ML CARP IV PRN ×2 (08:44→22:34)
[2022-10-24] MEDS: SODIUM ZIRCONIUM CYCLOSILICATE 10 GM PACKET PO SCH ×2 (13:13→20:19)
[2022-10-24] MEDS: SODIUM BICARBONATE 650 MG TAB PO SCH ×2 (15:19→22:26)
--- NOTE | 2022-10-24 16:18 | Hospitalist Progress Note ---
Date of Service October 24, 2022 Assessment & Plan (1) Acute hyperkalemia: Plan: 52-year-old male with abdominal sarcoma presenting with several days of not feeling wellpoor oral intake, nausea and dysphagia. Potassium was elevated at 6 with some mild EKG changes. Patient is on potassium supplementation as well. 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 He follows with [facility] and supposedly to begin a new chemotherapy regimen on 10/23/22. I discussed with over the phone with her oncologist Has been rescheduled for October 30 Plan F/E/N - NSS at 125mL/hr x 2 liters, electrolytes WNL, Soft diet as tolerated with aspiration precautions Ppx - Lovenox Code - Full per discussion with family and patient Dispo - hopefully d/c in the next 24 hrs Admission and Anticipated Discharge Date Admission Date: October 22, 2022 Subjective patient seen and examined, by the bedside, feels better Review of Systems Review of Systems: The patient is awake, alert and oriented 3, well developed and well nourished, normocephalic and atraumatic, lying in bed and in no acute distress. HEENT--PERRL, EOMI, mucous membranes and oropharynx mildly dry Neck--supple. No JVD. No bruits. Thyroid normal, trachea midline, no adenopathy. Heart--normal S1 and S2. No murmurs, rubs or gallops. Lungs--clear bilaterally, no respiratory distress, no accessory muscle use. Abdomen--normal bowel sounds and soft. Mild epigastric and left sided abdominal pain Extremities--no cyanosis or clubbing. No edema. Dermatologic--normal skin turgor, normal color, no abnormal lymph nodes, no rash. Neurologic--cranial nerves II through XII grossly intact. Rheumatologic--normal range of motion. Psychiatric--normal affect. Results & Data Results & Data ([facility]) Vital Signs (Past 12 Hours) Vital Signs Temp Pulse Pulse Resp BP Pulse Ox O2 Del Method 10/24/22 15:00 99 H 10/24/22 14:36 97.5 F L 105 H 19 100/69 97 Room Air 10/24/22 11:28 97.9 F 59 L 20 92/53 L 93 Nasal Cannula 10/24/22 11:15 Room Air 10/24/22 07:30 92 H 10/24/22 10:50 97.3 F L 98 H 19 108/76 97 Room Air 10/24/22 08:08 83 117/74 98 Room Air 10/24/22 06:57 97.9 F 98 H 18 98/66 L 98 Room Air O2 Flow Rate 10/24/22 15:00 10/24/22 14:36 10/24/22 11:28 2 10/24/22 11:15 10/24/22 07:30 10/24/22 10:50 10/24/22 08:08 10/24/22 06:57 PG Care Time/CCT Total # of Minutes Spent Total Time Spent with Patient: Total time spent is greater than 50% in coordination of care (as documented) at patient's floor/unit and/or counseling patient: Coding Level of Care Code 10423 SUB INP/OBS CARE 2/35MIN Diagnoses Acute hyperkalemia E87.5 Hyponatremia E87.1 Sarcoma C49.9 Time Spent (min) 35
[2022-10-24] MEDS: SODIUM CHLORIDE 1 GM TABLET PO SCH (22:26)
[2022-10-25] MEDS: MoRPHine SULFATE 2 MG/ML CARP IV PRN ×3 (03:35→21:40)
[2022-10-25] MEDS: ENOXAPARIN INJ 40 MG/0.4 ML SYR SQ SCH (05:16)
[2022-10-25 06:56] LABS: BUN Creatinine Ratio 24.8 (10-20); Calcium 10.2 mg/dl (8.5-10.1); Creatinine Clr Calc Pharmacy 74.6 ml/min; Est GFR (African American) 79.9 ml/min; Est GFR (Non-African American) 68.9 ml/min
[2022-10-25] MEDS: SODIUM CHLORIDE 1 GM TABLET PO SCH ×3 (08:05→21:29)
[2022-10-25] MEDS: CIPROFLOXACIN 500 MG TAB PO SCH ×2 (08:06→21:29)
[2022-10-25] MEDS: SODIUM ZIRCONIUM CYCLOSILICATE 10 GM PACKET PO SCH ×2 (08:06→14:15)
[2022-10-25] MEDS: ACYCLOVIR 400 MG TAB PO SCH ×2 (08:06→21:30)
[2022-10-25] MEDS: SODIUM BICARBONATE 650 MG TAB PO SCH ×3 (08:06→21:28)
[2022-10-25] MEDS: PANTOprazole 40 MG TAB PO SCH (08:07)
--- NOTE | 2022-10-25 08:24 | Nephrology Consultation ---
Date of Consultation October 25, 2022 Assessment & Plan (1) Hyponatremia: Attributed to poor solute intake and excess free water. Tolerating oral NaCl and NaHCO3. 3% saline bolus ordered now. Urine osmolality, Misha and UK requested. Encourage oral solute intake. DDx also includes adrenal insufficiency possibly related to Doxorubicin and SIADH possibly related to Ifosfamide. Check TSH, AM cortisol, and ACTH. ACTH stim test then can be coordinated as needed based on results. (2) Acute kidney injury: Secondary to dehydration. Improved with IVF. Volume status appears relatively euvolemic at this time. Creatinine improved. Non-oliguric. Medications appropriate for kidney function. (3) Acute hyperkalemia: Improved with treatment, including hydration and encouraging urine output. Potassium supplements have been stopped. Remains on low potassium diet. Maintain suspicion for possible adrenal insufficiency. Will monitor. (4) Metabolic acidosis: Predominately NAGMA. Denies notable diarrhea at this time. Tolerating oral NaH CO3 replacement. Urine studies for UAG requested. History of Present Illness Reason for Consultation: Hyponatremia Requesting Physician: Inocencia Fagan MD Attending Physician: Inocencia Fagan MD History of Present Illness Mr. 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 He follows at [facility] for treatment (Dr. Castillo). Initial diagnosis made in May 14 after presenting with flank pain. CT demonstrating a 10 cm mass with abutment of the duodenum, pancreas, liver, and IVC. He completed the most recent chemotherapy treatment in mid September (10/02/22 - 10/07/22).. Unfortunately, the tumor has not responded to therapy. Melo reports that his oncologist is planning to start a new treatment which u nfortunately has been delayed by his current hospitalization. In September, biliary stent was placed by IR at [facility] following his treatment. Appetite has been poor and he has lost weight since this time. He denies any diarrhea currently. He has not had fluid retention or edema. He presented to [facility] on 10/14 with abdominal pain and blood from biliary drain. On 10/21, he returned to the ER with weakness and nausea. Evaluation notable for hyponatremia, hyperkalemia, and BRANDON. Home medication list includes lisinopril. However, Melo told me that he has not been taking this medication. He was taking PhosNaK and KCl for previously noted electrolyte disorders. Admitting labs with sodium 127 mmol/L, potassium 6.8 mmol/L, HCO3 15, and creatinine 1.6 mg/dL. Melo has not been hypoglycemic. Baseline creatinine 0.9 mg/dL as recently as October 14. UA on admission was bland with acellular microscopy. He has been treated with IV NSS followed by oral NaCl and NaHCO3. Creatinine improved to 1.2 mg/dL. Potassium now 5.0 mmol/L. HCO3 remains 15 mmol/L. Sodium 125 mmol/L. BP has been 96-126 mmHg systolic and 60-80 mmHg diastolic. Melo was seen and evaluated in his hospital room this morning. He is resting comfortably in bed. He denies pain at this time. He denies diarrhea. He continues to experience some lightheadedness. Fatigue persits but he does feel there has been improvement in activity tolerance since admission. No nausea at this time. Allergies Allergy/AdvReac Type Severity Reaction Status Date / Time No Known Allergies Allergy Verified 05/21/22 10:13 Home Medications Medication Instructions Recorded Confirmed Type lisinopril 20 mg tablet 20 mg PO DAILY 05/21/22 05/21/22 History Patient History Medical History High cholesterol HTN (hypertension) Sarcoma abdominal sarcoma diagnosed 04/2022 Umbilical hernia Family History Father Prostate cancer Social History Smoking Status: Never smoker Second Hand Exposure: Yes; Do You Dip or Chew Tobacco: No; Tobacco Cessation Education Requested by Patient: No Hx Alcohol Use: No Hx Substance Use: No Preferred Language: Croatian Communication Ability: Effective Asset Protection Manager Required: No Beliefs That Will Affect Care: None marital status: Current Living Situation: Spouse current occupational status: employed current occupation: [employer] Other Information That Helps Us Care for You: No Feels Safe at Home: Yes Safety Concerns: Feels Safe At This Time Assistive Devices: None Review of Systems Review of Systems: All systems reviewed & are unremarkable except as noted in HPI & below Physical Exam Constitutional: well developed; no acute distress Eyes: + anicteric sclerae; no corneal abnormality ENMT: Mouth: no oral mucosal abnormality and oral mucous membranes not dry Neck: normal visual inspection and trachea midline Respiratory: normal respiratory effort Auscultation: lungs clear to auscultation bilaterally Cardiovascular: Rate/Rhythm: regular rate Heart Sounds: normal S1 and normal S2 Extremities: no edema Gastrointestinal (Abdomen): Biliary drain Musculoskeletal: Extremities: no cyanosis and no clubbing Skin: normal turgor and + jaundice Neurologic: Motor/Sensory: no tremor and no asterixis Psychiatric: Orientation: alert and oriented x 3 Results & Data ([facility]) Vital Signs (Past 12 Hours) Vital Signs Temp Pulse Pulse Pulse Resp BP Pulse Ox 10/25/22 07:55 36.3 C L 103 H 16 102/70 96 10/25/22 03:37 36.4 C L 95 H 17 103/70 95 10/24/22 23:57 36.3 C L 105 H 17 99/69 L 97 10/24/22 23:49 103 H O2 Del Method 10/25/22 07:55 Room Air 10/25/22 03:37 Room Air 10/24/22 23:57 Room Air 10/24/22 23:49 Laboratory Results Laboratory Results - last 24 hr 10/25/22 05:27 Sodium 125 L Potassium 5.0 Chloride 102 Carbon Dioxide 15 L Anion Gap 8 BUN 30 H Creatinine 1.21 Est Cr Clr Drug Dosing 74.6 Est GFR ( Amer) 79.9 Est GFR (Non-Af Amer) 68.9 BUN/Creatinine Ratio 24.8 H Glucose 112 H Calcium 10.2 H Diagnostic Findings ABDOMEN AND PELVIS CT WITH IV CONTRAST CT DOSE: HISTORY: severe pain, sarcoma, n/v TECHNIQUE: Multiaxial CT images of the abdomen and pelvis were performed following the use of intravenous contrast. A dose lowering technique was utilized adhering to the principles of ALARA. COMPARISON STUDY: Abdomen and pelvis CT 10/14/2022. FINDINGS: Imaged inferior cardiac chambers are unremarkable. Partially imaged catheter is noted with distal tip within the right atrium. Mild subsegmental right basilar atelectasis. There are new subcentimeter scattered bilateral solid nodules in the lung bases again noted. No pneumatosis or pneumoperitoneum. The spleen is enlarged, 13.9 cm. Unremarkable pancreas and adrenal glands. Heterogeneous mass with partially calcified components within the right upper quadrant abdomen measures approximately 17 x 16 x 15 cm. This mass is again noted involving the right kidney with mass effect and possible invasion of the gallbladder. Possible invasion into the duodenum without obstruction. There is also mass effect with effacement of the IVC. A percutaneous drainage catheter is noted in the liver into the biliary system with distal tip in the duodenum. There is mild intrahepatic biliary ductal dilation. There is mild inflammatory stranding trace fluid surrounding the large mass and also the catheter. Probable right renal cysts. No significant hydronephrosis. Urinary bladder wall thickening with partial distention. Prostamegaly. No abdominal aortic aneurysm. No bowel obstruction or bowel wall thickening. Moderate colonic fecal retention. Colonic diverticulosis without acute diverticulitis. Normal appendix. Collateral vessels within the right abdomen. No acute fracture. No destructive bone lesion identified. IMPRESSION: 1. Large mass within the abdominal right upper quadrant again noted and demonstrates invasion and mass effect upon the adjacent structures as described above. 2. Percutaneous biliary drainage catheter is in place with distal tip terminating within the duodenum. 3. Subcentimeter pulmonary metastasis. 4. No bowel obstruction. PG Care Time/CCT Total # of Minutes Spent Total Time Spent with Patient: Total time spent is greater than 50% in coordination of care (as documented) at patient's floor/unit and/or counseling patient: Coding Level of Care Code INP/OBS CONSULT LVL 5, 80 MIN Diagnoses Hyponatremia E87.1 Acute kidney injury N17.9 Acute hyperkalemia E87.5 Metabolic acidosis E87.20
[2022-10-25] MEDS ORDERED: SODIUM CHLORIDE 3 % 100 ML IV ONE (09:23)
[2022-10-25] MEDS ORDERED: STAT IV STA ×2 (09:23→14:45)
[2022-10-25 12:06] LABS: Potassium Random Urine 22.6 mmol/L; Sodium Random Urine < 10 mmol/L
[2022-10-25 13:53] LABS: Albumin Level 3.8 gm/dl (3.4-5.0); Calcium 8.9 mg/dl (8.5-10.1); Creatinine Clr Calc Pharmacy 77.8 ml/min; Est GFR (Non-African American) 72.5 ml/min; Phosphorus 3.6 mg/dl (2.5-4.9); Potassium 4.9 mmol/L (3.5-5.1)
[2022-10-25] MEDS ORDERED: SODIUM CHLORIDE 3 % 150 ML IV ONE (14:45)
--- NOTE | 2022-10-25 15:26 | Hospitalist Progress Note ---
Date of Service October 25, 2022 Assessment & Plan (1) Acute hyperkalemia: Plan: 52-year-old male with abdominal sarcoma presenting with several days of not feeling wellpoor oral intake, nausea and dysphagia. Potassium was elevated at 6 with some mild EKG changes. Patient is on potassium supplementation as well. 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 He follows with [facility] and supposedly to begin a new chemotherapy regimen on 10/23/22. I discussed with over the phone with her oncologist Has been rescheduled for October 30 Plan F/E/N - NSS at 125mL/hr x 2 liters, electrolytes WNL, Soft diet as tolerated with aspiration precautions Ppx - Lovenox Code - Full per discussion with family and patient Dispo - hopefully d/c in the next 24 hrs Admission and Anticipated Discharge Date Admission Date: October 22, 2022 Subjective patient seen and examined, by the bedside, feels better Review of Systems Review of Systems: All systems reviewed are negative, apart from the ones contained in the history. Physical Exam Physical Exam: The patient is awake, alert and oriented 3, well developed and well nourished, normocephalic and atraumatic, lying in bed and in no acute distress. HEENT--PERRL, EOMI, mucous membranes and oropharynx mildly dry Neck--supple. No JVD. No bruits. Thyroid normal, trachea midline, no adenopathy. Heart--normal S1 and S2. No murmurs, rubs or gallops. Lungs--clear bilaterally, no respiratory distress, no accessory muscle use. Abdomen--normal bowel sounds and soft. Mild epigastric and left sided abdominal pain Extremities--no cyanosis or clubbing. No edema. Dermatologic--normal skin turgor, normal color, no abnormal lymph nodes, no rash. Neurologic--cranial nerves II through XII grossly intact. Rheumatologic--normal range of motion. Psychiatric--normal affect. Results & Data Results & Data ([facility]) Vital Signs (Past 12 Hours) Vital Signs Temp Pulse Pulse Pulse Resp BP Pulse Ox 10/25/22 14:15 98 H 10/25/22 06:00 101 H 10/25/22 10:46 97.5 F L 102 H 19 97/67 L 98 10/25/22 07:55 97.3 F L 103 H 16 102/70 96 10/25/22 03:37 97.5 F L 95 H 17 103/70 95 O2 Del Method 10/25/22 14:15 10/25/22 06:00 10/25/22 10:46 Room Air 10/25/22 07:55 Room Air 10/25/22 03:37 Room Air PG Care Time/CCT Total # of Minutes Spent Total Time Spent with Patient: Total time spent is greater than 50% in coordination of care (as documented) at patient's floor/unit and/or counseling patient: Coding Level of Care Code 22275 SUB INP/OBS CARE 2/35MIN Diagnoses Acute hyperkalemia E87.5 Hyponatremia E87.1 Sarcoma C49.9 Time Spent (min) 35
[2022-10-25 18:19] LABS: BUN Creatinine Ratio 24.3 (10-20); Calcium 8.7 mg/dl (8.5-10.1); Creatinine Clr Calc Pharmacy 81.3 ml/min; Est GFR (African American) 88.6 ml/min; Est GFR (Non-African American) 76.5 ml/min; Potassium 4.8 mmol/L (3.5-5.1)
[2022-10-26] MEDS: ENOXAPARIN INJ 40 MG/0.4 ML SYR SQ SCH (06:06)
[2022-10-26 07:25] LABS: BUN Creatinine Ratio 22.2 (10-20); Creatinine Clr Calc Pharmacy 83.6 ml/min; Est GFR (African American) 91.6 ml/min; Potassium 4.8 mmol/L (3.5-5.1)
[2022-10-26] MEDS ORDERED: STAT IV STA ×2 (08:03→14:00)
[2022-10-26] MEDS ORDERED: SODIUM CHLORIDE 3 % 150 ML IV ONE (08:03)
[2022-10-26] MEDS: ACYCLOVIR 400 MG TAB PO SCH ×2 (08:30→20:57)
[2022-10-26] MEDS: SODIUM CHLORIDE 1 GM TABLET PO SCH ×3 (08:31→20:57)
[2022-10-26] MEDS: PANTOprazole 40 MG TAB PO SCH (08:31)
[2022-10-26] MEDS: SODIUM BICARBONATE 650 MG TAB PO SCH ×4 (08:31→20:55)
[2022-10-26] MEDS: CIPROFLOXACIN 500 MG TAB PO SCH ×2 (08:31→20:58)
[2022-10-26] MEDS ORDERED: SODIUM CHLORIDE 3 % 100 ML IV ONE (14:00)
--- NOTE | 2022-10-26 14:09 | Nephrology Progress Note ---
Date of Service October 26, 2022 Assessment & Plan (1) Hyponatremia: Plan: Attributed to poor solute intake and excess free water. Suspect solute loss in biliary drain and some persistent intravascular depletion. Tolerating oral NaCl and NaHCO3. 3% saline bolus ordered again this AM and a follow up this afternoon. Urine osmolality >500 yesterday and slightly improved today with intravascular expansion. However Uosm remains >400. Encourage oral solute intake. DDx also includes adrenal insufficiency possibly related to Doxorubicin and SIADH possibly related to Ifosfamide. However, these seem less likely at this time. AM cortisol of 17 is reassuring. ACTH pending. Defer ACTH stim test at this time. I told Melo that focus is on solute replacement. Hopefully we can achieve a serum sodium >130 this afternoon on repeat labs and then focus on seeing how we do with PO replacement overnight. (2) Acute kidney injury: Plan: Secondary to dehydration. Improved with IVF. Volume status appears relatively euvolemic at this time. Creatinine improved. Non-oliguric. Medications appropriate for kidney function. (3) Acute hyperkalemia: Plan: Improved with treatment, including hydration and encouraging urine output. Potassium supplements have been stopped. Remains on low potassium diet. Low suspicion for adrenal insufficiency. Will monitor. (4) Metabolic acidosis: Plan: Predominately NAGMA. Denies notable diarrhea at this time. Tolerating oral NaHCO 3 replacement. Increased this AM. UAG consistent with GI losses. However, Melo denies any diarrhea. Admission and Anticipated Discharge Date Admission Date: October 22, 2022 Subjective No acute events overnight. Melo was seen and evaluated in his hospital room this morning with his at the bedside. I discussed the plan of care with Dr. Fagan. Melo would like to go home and is frustrated by being in the hospital. Appetite remains reduced. No fluid retention or edema. Tolerating PO NaCl and NaHCO3 replacement. No lightheadedness, dizziness, syncope or presyncope. Biliary drain putting out ~1 L per day. Review of Systems Review of Systems: All systems reviewed & are unremarkable except as noted in HPI & below Physical Exam Constitutional: well developed; no acute distress Eyes: + anicteric sclerae; no corneal abnormality ENMT: Mouth: no oral mucosal abnormality and oral mucous membranes not dry Neck: normal visual inspection and trachea midline Respiratory: normal respiratory effort Auscultation: lungs clear to auscultation bilaterally Cardiovascular: Rate/Rhythm: regular rate Heart Sounds: normal S1 and normal S2 Extremities: no edema Musculoskeletal: Extremities: no cyanosis and no clubbing Skin: normal turgor and + jaundice Neurologic: Motor/Sensory: no tremor and no asterixis Psychiatric: Orientation: alert and oriented x 3 Results & Data ([facility]) Vital Signs (Past 12 Hours) Vital Signs Temp Pulse Pulse Resp BP Pulse Ox O2 Del Method 10/26/22 11:21 36.4 C L 97 H 20 104/71 99 Room Air 10/26/22 07:26 36.3 C L 101 H 18 104/66 98 Room Air 10/26/22 06:00 96 H 10/26/22 03:11 36.5 C 96 H 18 97/62 L 97 Room Air Laboratory Results Laboratory Results - last 24 hr 10/25/22 10/26/22 10/26/22 17:39 06:00 06:00 Sodium 127 L Potassium 4.8 Chloride 104 Carbon Dioxide 15 L Anion Gap 8 BUN 27 H Creatinine 1.11 Est Cr Clr Drug Dosing 81.3 Est GFR ( Amer) 88.6 Est GFR (Non-Af Amer) 76.5 BUN/Creatinine Ratio 24.3 H Glucose 133 H Calcium 8.7 TSH 3.046 Cortisol AM Sample ACTH Pending Urine Osmolality 10/26/22 10/26/22 10/26/22 06:00 07:16 10:27 Sodium 127 L Potassium 4.8 Chloride 104 Carbon Dioxide 16 L Anion Gap 7 BUN 24 H Creatinine 1.08 Est Cr Clr Drug Dosing 83.6 Est GFR ( Amer) 91.6 Est GFR (Non-Af Amer) 79.0 BUN/Creatinine Ratio 22.2 H Glucose 106 H Calcium 9.0 TSH Cortisol AM Sample 17.23 ACTH Urine Osmolality 489 L 10/26/22 12:16 Sodium 128 L Potassium Chloride Carbon Dioxide Anion Gap BUN Creatinine Est Cr Clr Drug Dosing Est GFR ( Amer) Est GFR (Non-Af Amer) BUN/Creatinine Ratio Glucose Calcium TSH Cortisol AM Sample ACTH Urine Osmolality PG Care Time/CCT Total # of Minutes Spent Total Time Spent with Patient: Total time spent is greater than 50% in coordination of care (as documented) at patient's floor/unit and/or counseling patient: Coding Level of Care Code 55872 SUB INP/OBS CARE 3/50MIN Diagnoses Hyponatremia E87.1 Acute kidney injury N17.9 Acute hyperkalemia E87.5 Metabolic acidosis E87.20
--- NOTE | 2022-10-26 15:18 | Hospitalist Progress Note ---
Date of Service October 26, 2022 Assessment & Plan (1) Acute hyperkalemia: Plan: 52-year-old male with abdominal sarcoma presenting with several days of not feeling wellpoor oral intake, nausea and dysphagia. Potassium was elevated at 6 with some mild EKG changes. Patient is on potassium supplementation as well. Potassium is now wnl with Insulin, dextrose and Zirconium Continue to monitor (2) Hyponatremia: Plan: Could be hypovolemic hyponatremia, poor po intake of solutes, siadh Some improvement in sodium level, 128 today Encourage oral intake Salt tablets, 3% saline ordered by nephro TSH, Cortisol wnl. 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 He follows with [facility] and supposedly to begin a new chemotherapy regimen on 10/23/22. I discussed with over the phone with her oncologist Has been rescheduled for October 30 Plan F/E/N - NSS at 125mL/hr x 2 liters, electrolytes WNL, Soft diet as tolerated with aspiration precautions Ppx - Lovenox Code - Full per discussion with family and patient Dispo - hopefully d/c in the next 24 hrs Admission and Anticipated Discharge Date Admission Date: October 22, 2022 Subjective patient seen and examined, at the bedside, wants to be discharged home Review of Systems Review of Systems: All systems reviewed are negative, apart from the ones contained in the history. Physical Exam Physical Exam: The patient is awake, alert and oriented 3, well developed and well nourished, normocephalic and atraumatic, lying in bed and in no acute distress. HEENT--PERRL, EOMI, mucous membranes and oropharynx mildly dry Neck--supple. No JVD. No bruits. Thyroid normal, trachea midline, no adenopathy . Heart--normal S1 and S2. No murmurs, rubs or gallops. Lungs--clear bilaterally, no respiratory distress, no accessory muscle use. Abdomen--normal bowel sounds and soft. Mild epigastric and left sided abdominal pain Extremities--no cyanosis or clubbing. No edema. Dermatologic--normal skin turgor, normal color, no abnormal lymph nodes, no rash. Neurologic--cranial nerves II through XII grossly intact. Rheumatologic--normal range of motion. Psychiatric--normal affect. Results & Data Results & Data ([facility]) Vital Signs (Past 12 Hours) Vital Signs Temp Pulse Pulse Resp BP Pulse Ox O2 Del Method 10/26/22 11:21 97.5 F L 97 H 20 104/71 99 Room Air 10/26/22 07:26 97.3 F L 101 H 18 104/66 98 Room Air 10/26/22 06:00 96 H PG Care Time/CCT Total # of Minutes Spent Total Time Spent with Patient: Total time spent is greater than 50% in coordination of care (as documented) at patient's floor/unit and/or counseling patient: Coding Level of Care Code 32315 SUB INP/OBS CARE 2/35MIN Diagnoses Acute hyperkalemia E87.5 Hyponatremia E87.1 Sarcoma C49.9 Time Spent (min) 35
[2022-10-26] MEDS: MoRPHine SULFATE 2 MG/ML CARP IV PRN ×2 (16:47→21:23)
[2022-10-27] MEDS: ENOXAPARIN INJ 40 MG/0.4 ML SYR SQ SCH (06:31)
[2022-10-27 06:54] LABS: Calcium 9.1 mg/dl (8.5-10.1); Potassium 4.6 mmol/L (3.5-5.1)
[2022-10-27 07:00] LABS: BUN Creatinine Ratio 15.2 (10-20); Creatinine Clr Calc Pharmacy 80.6 ml/min; Est GFR (African American) 87.7 ml/min; Est GFR (Non-African American) 75.7 ml/min
[2022-10-27] MEDS: SODIUM BICARBONATE 650 MG TAB PO SCH ×3 (08:20→20:13)
[2022-10-27] MEDS: SODIUM CHLORIDE 1 GM TABLET PO SCH ×3 (08:21→20:18)
[2022-10-27] MEDS: ACYCLOVIR 400 MG TAB PO SCH ×2 (08:21→20:07)
[2022-10-27] MEDS: CIPROFLOXACIN 500 MG TAB PO SCH ×2 (08:21→20:06)
[2022-10-27] MEDS: PANTOprazole 40 MG TAB PO SCH (08:21)
--- NOTE | 2022-10-27 09:11 | Nephrology Progress Note ---
Date of Service October 27, 2022 Assessment & Plan (1) Hyponatremia: Plan: * Poor solute intake * Continue NaCl and NaHCO3 supplements * Will order PRP this afternoon. If serum Na > 130 mmol/L then consider discharge to home. Recommend follow up w/ PCP or Dr. Vilchis 7 - 14 days following discharge (2) Acute kidney injury: Plan: * Resolved (3) Metabolic acidosis: Plan: * Predominately NAGMA. Improved w/ NaHCO3 therapy (4) Sarcoma: Admission and Anticipated Discharge Date Admission Date: October 22, 2022 Subjective Mr. Galloway was evaluated in his hospital room this morning. He is tolerating NaCl and NaHCO3 supplements without GI upset. He voices no new medical concerns and is anxious to return home Review of Systems Constitutional: no fever Eyes: no problem reported Ear, Nose, Mouth, Throat: no problem reported Respiratory: no dyspnea Cardiovascular: no chest pain Gastrointestinal: no abdominal pain Neurologic: no generalized weakness Physical Exam Constitutional: + frail appearing; not in distress Eyes: PERRL, conjunctivae normal, anicteric sclerae ENMT: external ear and nose normal, oropharynx normal Respiratory: normal respiratory effort, lungs clear to auscultation Cardiovascular: RRR, no murmur, no edema Gastrointestinal (Abdomen): Inspection/Auscultation: abdomen normal to inspection Percussion/Palpation: abdomen soft; abdomen nontender biliary drain in place Neurologic: awake; not confused Results & Data ([facility]) Vital Signs (Past 12 Hours) Vital Signs Temp Pulse Pulse Resp BP Pulse Ox O2 Del Method 10/27/22 07:23 36.5 C 100 H 18 102/69 99 Room Air 10/27/22 07:16 103 H 10/26/22 22:22 107 H 10/27/22 02:48 36.4 C L 84 20 96/63 L 95 Room Air 10/26/22 22:58 36.5 C 96 H 18 112/75 99 Room Air Laboratory Results Laboratory Tests 10/26/22 10/27/22 10:27 06:17 Sodium 129 L Potassium 4.6 Chloride 105 Carbon Dioxide 17 L BUN 17 Creatinine 1.12 Glucose 116 H Calcium 9.1 Urine Osmolality 489 L PG Care Time/CCT Total # of Minutes Spent Total Time Spent with Patient: Total time spent is greater than 50% in coordination of care (as documented) at patient's floor/unit and/or counseling patient: Coding Level of Care Code 12007 SUB INP/OBS CARE 50MIN Diagnoses Hyponatremia E87.1 Acute kidney injury N17.9 Metabolic acidosis E87.20 Sarcoma C49.9
[2022-10-27 13:59] LABS: BUN Creatinine Ratio 14.1 (10-20); Calcium 8.6 mg/dl (8.5-10.1); Creatinine Clr Calc Pharmacy 91.1 ml/min; Est GFR (African American) 101.8 ml/min; Est GFR (Non-African American) 87.8 ml/min; Potassium 4.3 mmol/L (3.5-5.1)
--- NOTE | 2022-10-27 15:27 | Hospitalist Progress Note ---
Date of Service October 27, 2022 Assessment & Plan (1) Acute hyperkalemia: Plan: 52-year-old male with abdominal sarcoma presenting with several days of not feeling wellpoor oral intake, nausea and dysphagia. Potassium was elevated at 6 with some mild EKG changes. Patient is on potassium supplementation as well. Potassium is now wnl with Insulin, dextrose and Zirconium Continue to monitor (2) Hyponatremia: Plan: Could be hypovolemic hyponatremia, poor po intake of solutes, siadh Some improvement in sodium level, 129 today Encourage oral intake Salt tablets, 3% saline ordered by nephro TSH, Cortisol wnl. 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 He follows with [facility] and supposedly to begin a new chemotherapy regimen on 10/23/22. I discussed with over the phone with her oncologist Has been rescheduled for October 30 Plan F/E/N - NSS at 125mL/hr x 2 liters, electrolytes WNL, Soft diet as tolerated with aspiration precautions Ppx - Lovenox Code - Full per discussion with family and patient Dispo - hopefully d/c in the next 24 hrs if serum sodium >130 Admission and Anticipated Discharge Date Admission Date: October 22, 2022 Subjective patient seen and examined, at the bedside. wants to be discharged Review of Systems Review of Systems: All systems reviewed are negative, apart from the ones contained in the history. Physical Exam Physical Exam: The patient is awake, alert and oriented 3, well developed and well nourished, normocephalic and atraumatic, lying in bed and in no acute distress. HEENT--PERRL, EOMI, mucous membranes and oropharynx mildly dry Neck--supple. No JVD. No bruits. Thyroid normal, trachea midline, no adenopathy. Heart--normal S1 and S2. No murmurs, rubs or gallops. Lungs--clear bilaterally, no respiratory distress, no accessory muscle use. Abdomen--normal bowel sounds and soft. Mild epigastric and left sided abdominal pain Extremities--no cyanosis or clubbing. No edema. Dermatologic--normal skin turgor, normal color, no abnormal lymph nodes, no rash. Neurologic--cranial nerves II through XII grossly intact. Rheumatologic--normal range of motion. Psychiatric--normal affect. Results & Data Results & Data ([facility]) Vital Signs (Past 12 Hours) Vital Signs Temp Pulse Pulse Resp BP Pulse Ox O2 Del Method 10/27/22 15:15 46 L 10/27/22 11:20 97.9 F 97 H 18 100/70 98 Room Air 10/27/22 07:23 97.7 F 100 H 18 102/69 99 Room Air 10/27/22 07:16 103 H PG Care Time/CCT Total # of Minutes Spent Total Time Spent with Patient: Total time spent is greater than 50% in coordination of care (as documented) at patient's floor/unit and/or counseling patient: Coding Level of Care Code 73128 SUB INP/OBS CARE 2/35MIN Diagnoses Acute hyperkalemia E87.5 Hyponatremia E87.1 Sarcoma C49.9 Time Spent (min) 35
[2022-10-27] MEDS ORDERED: SODIUM CHLORIDE 1 GM TABLET PO STA (20:13)
[2022-10-28] MEDS: ENOXAPARIN INJ 40 MG/0.4 ML SYR SQ SCH (06:28)
[2022-10-28 07:27] LABS: Calcium 9.1 mg/dl (8.5-10.1); Creatinine Clr Calc Pharmacy 83.6 ml/min; Est GFR (African American) 91.6 ml/min; Potassium 4.5 mmol/L (3.5-5.1)
[2022-10-28] MEDS: SODIUM BICARBONATE 650 MG TAB PO SCH (08:42)
[2022-10-28] MEDS: ACYCLOVIR 400 MG TAB PO SCH (08:43)
[2022-10-28] MEDS: SODIUM CHLORIDE 1 GM TABLET PO SCH (08:43)
[2022-10-28] MEDS: PANTOprazole 40 MG TAB PO SCH (08:43)
[2022-10-28] MEDS: CIPROFLOXACIN 500 MG TAB PO SCH (08:43)
[2022-10-28] MEDS ORDERED: SODIUM CHLORIDE 3 % 100 ML IV ONE (08:46)
[2022-10-28] MEDS ORDERED: STAT IV STA (08:46)
--- NOTE | 2022-10-28 08:49 | Nephrology Progress Note ---
Date of Service October 28, 2022 Assessment & Plan (1) Hyponatremia: Plan: * Poor solute intake * Continue NaCl and NaHCO3 supplements * Serum Na is now 130 mmol/L. OK to discharge to home while continuing NaCl and NaHCO3 supplements. Recommend follow up w/ PCP or Dr. Vilchis 7 - 14 days following discharge ([phone]) (2) Acute kidney injury: Plan: * Resolved (3) Metabolic acidosis: Plan: * Predominately NAGMA. Improved w/ NaHCO3 therapy (4) Sarcoma: Plan: * Chemotherapy scheduled for 10/30/22 at [facility] Admission and Anticipated Discharge Date Admission Date: October 22, 2022 Subjective Mr. Galloway was evaluated in his hospital room this morning. He is tolerating NaCl and NaHCO3 supplements without GI upset. He voices no new medical concerns. He is adamant that he be discharged home today. He is scheduled for chemotherapy Saturday at [facility] Review of Systems Constitutional: no fever Eyes: no problem reported Ear, Nose, Mouth, Throat: no problem reported Respiratory: no dyspnea Cardiovascular: no chest pain Gastrointestinal: no abdominal pain Neurologic: no generalized weakness Physical Exam Constitutional: + frail appearing; not in distress Eyes: PERRL, conjunctivae normal, anicteric sclerae ENMT: external ear and nose normal, oropharynx normal Respiratory: normal respiratory effort, lungs clear to auscultation Cardiovascular: RRR, no murmur, no edema Gastrointestinal (Abdomen): Inspection/Auscultation: abdomen normal to inspection Percussion/Palpation: abdomen soft; abdomen nontender Neurologic: awake; not confused Results & Data ([facility]) Vital Signs (Past 12 Hours) Vital Signs Temp Pulse Pulse Resp BP Pulse Ox O2 Del Method 10/28/22 07:54 36.6 C 99 H 16 112/73 97 Room Air 10/27/22 22:00 101 H 10/28/22 03:02 36.6 C 97 H 20 119/79 97 Room Air 10/27/22 23:31 36.6 C 100 H 18 103/67 96 Room Air Laboratory Results Laboratory Tests 10/28/22 06:29 Sodium 129 L Potassium 4.5 Chloride 103 Carbon Dioxide 20 L BUN 14 Creatinine 1.08 Glucose 112 H Calcium 9.1 Laboratory Tests 10/28/22 09:54 Sodium 130 L Potassium 4.2 Chloride 104 Carbon Dioxide 22 BUN 12 Creatinine 0.96 Est GFR (Non-Af Amer) 91.2 PG Care Time/CCT Total # of Minutes Spent Total Time Spent with Patient: Total time spent is greater than 50% in coordination of care (as documented) at patient's floor/unit and/or counseling patient: Coding Level of Care Code 13835 SUB INP/OBS CARE 3/50MIN Diagnoses Hyponatremia E87.1 Acute kidney injury N17.9 Metabolic acidosis E87.20 Sarcoma C49.9
[2022-10-28 10:24] LABS: BUN Creatinine Ratio 12.5 (10-20); Calcium 8.6 mg/dl (8.5-10.1); Est GFR (African American) 105.6 ml/min; Est GFR (Non-African American) 91.2 ml/min; Potassium 4.2 mmol/L (3.5-5.1)
--- NOTE | 2022-10-28 13:55 | Discharge Summary ---
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 He has a biliary drain in place. He follows predominantly at [facility] under Dr. Castillo and is occasionally seen at [facility] in [place]. Patient was previously on a sarcoma chemotherapy regimen with Doxorubicin/Ifosfamide and Mesna - last treatment 10/02/22 - 10/07/22. Unfortunately, his tumor has stopped responding to this regimen. He is scheduled at [facility] on 10/23/22 to initiate a new chemotherapy regimen. Patient presents with several days of not feeling well. Generalized weakness, nausea, dysphagia to both solids and liquids. He has not been eating or drinking much. He has chronic, stable abdominal pain. Denies chest pain, cough, SOB. Denies fever, chills, vomiting or diarrhea. He reports normal UOP although dark in color. No additional complaints at this time. In the ER he is afebrile, HD stable, NAD. No respiratory complaints, adequate oxygenation on room air. ER Course: Dextrose 50 + Insulin 10u, Fentanyl 50mcg x 2, NSS x 2L, Zofran 4mg IV Principal Diagnosis hyponatremia, hypokalemia Discharge Exam The patient is awake, alert and oriented 3, well developed and well nourished, normocephalic and atraumatic, lying in bed and in no acute distress. HEENT--PERRL, EOMI, mucous membranes and oropharynx mildly dry Neck--supple. No JVD. No bruits. Thyroid normal, trachea midline, no adenopathy. Heart--normal S1 and S2. No murmurs, rubs or gallops. Lungs--clear bilaterally, no respiratory distress, no accessory muscle use. Abdomen--normal bowel sounds and soft. Mild epigastric and left sided abdominal pain Extremities--no cyanosis or clubbing. No edema. Dermatologic--normal skin turgor, normal color, no abnormal lymph nodes, no rash. Neurologic--cranial nerves II through XII grossly intact. Rheumatologic--normal range of motion. Psychiatric--normal affect. Discharge Data Allergies Allergy/AdvReac Type Severity Reaction Status Date / Time No Known Allergies Allergy Verified 05/21/22 10:13 Consultations 10/22/22 01:45 ED Decision to Admit Stat 10/22/22 08:20 HIM [Consult Health Information Management] Stat 10/25/22 08:11 Consult Nephrology Routine Ordered Studies 10/21/22 22:05 CT Abd and Pelvis [CT abd pelvis IV con only] Stat CT soft tissue neck w con Stat Hospital Course (1) Acute hyperkalemia: 52-year-old male with abdominal sarcoma presenting with several days of not feeling wellpoor oral intake, nausea and dysphagia. Potassium was elevated at 6 with some mild EKG changes. Patient is on potassium supplementation as well. Potassium is now wnl with Insulin, dextrose and Zirconium Continue to monitor (2) Hyponatremia: Could be hypovolemic hyponatremia, poor po intake of solutes, siadh Some improvement in sodium level, 130 today Encourage oral intake Salt tablets, 3% saline ordered by nephro TSH, Cortisol wnl. 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 He follows with [facility] and supposedly to begin a new chemotherapy regimen on 10/23/22. I discussed with over the phone with her oncologist Has been rescheduled for October 30 Plan F/E/N - NSS at 125mL/hr x 2 liters, electrolytes WNL, Soft diet as tolerated with aspiration precautions Ppx - Lovenox Code - Full per discussion with family and patient Dispo - hopefully d/c in the next 24 hrs if serum sodium >130 Total Time Total Time Spent Total Time Spent (In Minutes): 35 Discharge Plan Discharge Items Patient Disposition: Home - Self-Care Reason For Visit: HYPERKALEMIA Discharge Diagnosis: hyponatremia, hyperkalemia, sarcoma Condition on Discharge: Fair Activity: Resume your previous activity Non-emergency contact: Primary Care Provider and Chief Passenger Ship Steward/Stewardess Call non-emergency contact if: you have any medication questions and your s ymptoms worsen Follow-up/Referrals: Cristian Vilchis DO [Physician] - Jessica Clay CRNP [Primary Care Provider] - Diet: Regular Addtl Attending Provider Instructions: please make appointment to follow up with nephrology in 1 week Please, dont take Lisinopril until you see your Chief Passenger Ship Steward/Stewardess Pending Studies at Discharge: No Stand-Alone Forms: My [employer], Smoking Cessation Medications and DC Order Prescriptions: New sodium chloride 1,000 mg Tablet,Soluble 1,000 mg PO TID 30 Days Qty: 90 0RF sodium bicarbonate 650 mg Tablet 1,300 mg PO TID 30 Days Qty: 180 0RF Continued acyclovir 400 mg tablet 400 mg PO DAILY ciprofloxacin HCl 500 mg tablet 500 mg PO BID diazepam 2 mg tablet 2 mg PO DAILY PRN (Reason: Anxiety) famotidine 20 mg tablet 20 mg PO BID loratadine 10 mg tablet 10 mg PO DAILY omeprazole 40 mg capsule,delayed release(DR/EC) ondansetron HCl 8 mg tablet 8 mg PO TID PRN (Reason: Nausea) oxycodone 5 mg capsule 5 mg PO Q4H PRN (Reason: Pain) Phospha 250 Neutral 250 mg tablet 1 tab PO TID prochlorperazine maleate 10 mg tablet 10 mg PO QID PRN (Reason: Nausea) sodium chloride 0.9 % syringe 10 ml Discontinued lisinopril 20 mg tablet 20 mg PO DAILY potassium chloride 20 mEq tablet extended release 20 meq PO BID Discharge Orders: Discharge Order (Routine); Ordered 10/28/22 Ordered By: Inocencia Aragon/Other Patient Handouts: Hyperkalemia Dc, Hyponatremia Dc Admission Data Admit Date/Time: 10/22/22 02:07 Attending Provider: Inocencia Fagan Admit Provider: Laura Torres Primary Care Provider: Jessica Clay Other Providers: Laura Torres ; Cristian Vilchis Other Interventions: Discharge Summary Assessment (RN) Last Done: 10/28/22 11:28 Coding Level of Care Code HOSP INP/OBS DISCH >30 MIN Diagnoses Acute hyperkalemia E87.5 Hyponatremia E87.1 Sarcoma C49.9 Time Spent (min) 35
== END 2022-10-28 12:15 | disposition home or self-care (01) | DRG 641 ==
LOC: ED 21:48 → SUATTDRO 10-22 02:07 → 2S 10-22 02:07

== ENCOUNTER 2023-01-24 16:08 | Inpatient (IN) ==
[2023-01-24] MEDS ORDERED: CEFEPIME 2,000 MG/20 ML VIAL IV STA (16:27)
[2023-01-24] MEDS ORDERED: IBUPROFEN 200 MG TAB PO STA (16:28)
[2023-01-24] MEDS ORDERED: SODIUM CHLORIDE 0.9% 1000ML 2,000 ML IV ONE (16:29)
[2023-01-24] MEDS ORDERED: VANCOMYCIN HCL 2,000 MG in SODIUM CHLORIDE 0.9% 500 ML IV ONE (16:32)
[2023-01-24] MEDS ORDERED: VANCOMYCIN CONSULT ACTIVE PRN ×2 (16:32→19:29)
[2023-01-24] MEDS ORDERED: PIPERACILLIN/TAZOBACTAM 4.5 GM/120 ML BAG IV ONE (16:32)
--- NOTE | 2023-01-24 16:32 | Emergency Department Note ---
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 He has a biliary drain in place. [place] [facility] [place] and presents the ER for chills and feeling weak yesterday. He admits to a cough. He denies any belly pain, nausea, vomiting, or diarrhea. No dysuria, urgency, or frequency. No chest pain or shortness of breath. The cough is new over the past 24 to 48 hours. No other exacerbating or remitting factors. Last chemo was this past Saturday. PAST MEDICAL HISTORY:See Below PAST SURGICAL HISTORY:See Below FAMILY HISTORY:See Below SOCIAL HISTORY:See Below HOME MEDICATIONS:See Below ALLERGIES:See Below VITALS:See Below PHYSICAL EXAMINATION: GENERAL: Sitting up in bed, alert, ill-appearing, disheveled EYE EXAM: normal conjunctiva. OROPHARYNX:mucous membranes are dry NECK: supple, no nuchal rigidity, no adenopathy, non-tender LUNGS: Clear to auscultation. Normal chest wall mechanics HEART: Tachycardic, S1 normal and S2 normal ABDOMEN: abdomen soft, non-tender with biliary drain in upper mid abdomen, normo-active bowel sounds, no masses, no rebound or guarding. SKIN: Erythema on the right flank tracking from belt line just below mid axillary line UPPER EXTREMITIES: upper extremities are grossly normal. LOWER EXTREMITIES: No pitting edema. NEURO EXAM: Normal sensorium, cranial nerves II-XII grossly intact, normal speech, no gross weakness of arms, no gross weakness of legs. MEDICAL DECISION MAKING: Patient is a 52-year-old male who presents ER for above-stated complaint. He is found to be hypotensive with systolic pressures in the 90s. He was tachycardic with a heart rate in the 140s. IV was established blood work was obtained. Labs show no significant leukocytosis. Mild anemia at 7.8 down from baseline of what appears to be 10. Type and screen was placed. BMP was fairly unremarkable. LFTs bilirubin was unremarkable as well. Troponin was negative. Pro-Arnol was normal. UA without signs of infection. Bio fire was negative. Chest x-ray was clean. CT abdomen pelvis showed a clot which the family was aware of and is currently being treated with Lovenox. He was given Zosyn as well as IV vancomycin. He did have erythema on the left side of his abdominal wall. Question if this is cellulitis. Was awaiting UA upon admission which on CT did question a possible infection. He was given 2 L IV and was not given the additional 550 mL for 30 cc Per KG bolus due to his edematous state. He was monitored closely. Discussed with the hospitalist for further evaluation management treatment. Triage Nursing notes reviewed. Limited review of prior medical records performed Vital Signs: reviewed and remarkable for tachycardic, febrile and hypotensive Differential diagnosis: Differential diagnosis includes etiologies such as sepsis, UTI, pneumonia, metabolic, electrolyte abnormalities, cardiac sources, intracerebral event, toxicologic, neurological, as well as others were entertained. ER treatment provided: See below Diagnostics interpreted by me include EKG and cardiac monitoring as listed below: -Cardiac Monitoring: An order was placed for continuous cardiac monitoring. The monitor shows a rate of 125 with sinus rhythm EKG: Sinus tachycardia 125 Normal axis No PVCs QTc 438 -Laboratory studies:Interpreted by me as stated above in MDM and shown below. Imaging studies: Xrays: As interpreted by me: Portable AP upright 1 view of the chest shows no focal infiltrate CTs show: CT abdomen pelvis as described above Consultation(s): Discussed with Dr. Abdullahi Deleon for further evaluation management treatment Procedures:none Critical Care: I have personally spent 32 minutes of critical care time in the direct management of this patient. This includes bedside care, interpretation of diagnostic studies, and testing, discussion with consultants, patient, and family members, and other required patient management activities. This 32 minutes is in excess of all separately billable procedures. Past Med/Surg History Medical History High cholesterol History of biliary stent insertion HTN (hypertension) Metabolic acidosis Sarcoma abdominal sarcoma diagnosed 04/2022 Umbilical hernia Surgical History History of biliary duct stent placement Family History Father Prostate cancer Social History (Reviewed 04/25/23 @ 08:28 by Alonso Jeter Smoking Status: Never smoker Second Hand Exposure: Yes; Do You Dip or Chew Tobacco: No; Hx Alcohol Use: No Hx Substance Use: No Preferred Language: Palauan Communication Ability: Effective Postpartum Nurse Required: No Beliefs That Will Affect Care: None marital status: Current Living Situation: Spouse current occupational status: employed current occupation: [employer] Feels Safe at Home: Yes Assistive Devices: None Allergies Allergies Allergy/AdvReac Type Severity Reaction Status Date / Time No Known Allergies Allergy Verified 01/24/23 17:10 Home Meds Home Medications Medication Instructions Recorded Confirmed acyclovir 400 mg tablet 400 mg PO BID 10/28/22 01/24/23 ciprofloxacin HCl 500 mg tablet 500 mg PO BID 10/28/22 01/24/23 diazepam 2 mg tablet 2 mg PO DAILY PRN Anxiety 10/28/22 01/24/23 famotidine 20 mg tablet 20 mg PO BID 10/28/22 01/24/23 loratadine 10 mg tablet 10 mg PO DAILY 10/28/22 01/24/23 ondansetron HCl 8 mg tablet 8 mg PO TID PRN Nausea 10/28/22 01/24/23 oxycodone 5 mg capsule 5 mg PO Q4H PRN Pain 10/28/22 01/24/23 prochlorperazine maleate 10 mg 10 mg PO QID PRN Nausea 10/28/22 01/24/23 tablet sodium chloride 0.9 % injection 10 ml TID 10/28/22 01/24/23 syringe enoxaparin 100 mg/mL subcutaneous 0 mg subcut BID 01/24/23 01/24/23 syringe furosemide 20 mg tablet 20 mg PO .DAILY FOR 5 DAYS 01/24/23 01/24/23 Results & Data (ED) Vital Signs Vital Signs - 24 hr 01/24/23 16:12 01/24/23 16:25 01/24/23 16:30 Temperature 38.1 C H Temperature Source Temporal Artery Scan Pulse Rate 141 H 125 H Pulse Rate [Apical] Pulse Rhythm Regular Respiratory Rate 18 Respiratory Depth Blood Pressure 105/65 Blood Pressure [Right Arm] Blood Pressure Mean 78 Blood Pressure Mean [Right Arm] Pulse Oximetry 97 98 Oxygen Delivery Method Room Air Room Air Room Air Sepsis Recent Fever Within 48 Hours No Sepsis New/Unexplained Change in Mental Status No Sepsis Action Taken by Nursing No Action Required 01/24/23 16:30 01/24/23 16:54 01/24/23 16:31 Temperature Temperature Source Pulse Rate 126 H Pulse Rate [Apical] 127 H 123 H Pulse Rhythm Respiratory Rate 19 20 Respiratory Depth Normal Blood Pressure Blood Pressure [Right Arm] 96/59 L 125/69 Blood Pressure Mean Blood Pressure Mean [Right Arm] 71 87 Pulse Oximetry 98 99 Oxygen Delivery Method Room Air Room Air Sepsis Recent Fever Within 48 Hours Sepsis New/Unexplained Change in Mental Status Sepsis Action Taken by Nursing 01/24/23 17:20 01/24/23 17:50 01/24/23 18:11 Temperature Temperature Source Pulse Rate Pulse Rate [Apical] 121 H 124 H 121 H Pulse Rhythm Respiratory Rate Respiratory Depth Blood Pressure Blood Pressure [Right Arm] 114/58 L 112/57 L 119/62 Blood Pressure Mean Blood Pressure Mean [Right Arm] 76 75 81 Pulse Oximetry Oxygen Delivery Method Sepsis Recent Fever Within 48 Hours Sepsis New/Unexplained Change in Mental Status Sepsis Action Taken by Nursing 01/24/23 18:19 Temperature Temperature Source Pulse Rate Pulse Rate [Apical] 121 H Pulse Rhythm Respiratory Rate Respiratory Depth Blood Pressure Blood Pressure [Right Arm] 109/54 L Blood Pressure Mean Blood Pressure Mean [Right Arm] 72 Pulse Oximetry 97 Oxygen Delivery Method Room Air Sepsis Recent Fever Within 48 Hours Sepsis New/Unexplained Change in Mental Status Sepsis Action Taken by Nursing Laboratory Data 01/24/23 16:47 01/24/23 16:47 Lab Results 01/24/23 01/24/23 01/24/23 Range/Units 16:47 16:47 16:47 WBC 10.70 (4.8-10.8) K/ul RBC 2.62 L (4.70-6.10) M/uL Hgb 7.8 L (14.0-18.0) g/dl POC Hgb (14.0-18.0) g/dl Hct 25.8 L (42.0-52.0) % POC Hct (42-52) % MCV 98.5 (80.0-100.0) fL MCH 29.8 (25.0-34.0) pg MCHC 30.2 L (32.0-36.0) g/dL RDW Std Deviation 81.7 H (36.4-46.3) fL RDW Coeff of Liliana 22.8 H (11.5-14.5) % Plt Count 235 (130-400) K/uL MPV 10.4 (9.4-12.4) fL Immature Gran % (Auto) 0.7 % Neut % (Auto) 94.9 % Lymph % (Auto) 2.2 % [place] % (Auto) 1.9 % Eos % (Auto) 0.1 % Baso % (Auto) 0.2 % Neut # (Auto) 10.16 H (1.40-6.50) K/uL Lymph # (Auto) 0.24 L (1.2-3.4) K/uL [place] # (Auto) 0.20 (0.11-0.59) K/uL Eos # (Auto) 0.01 (0-0.50) K/uL Baso # (Auto) 0.02 (0-0.2) K/uL Immature Gran # (Auto) 0.07 (0.01-0.20) K/uL Hypochromasia Present Tear Drop Cells 1+ PT 11.7 (9.0-12.0) Seconds INR 1.1 (0.9-1.1) POC Sodium (135-144) mmol/L Sodium 133 L (136-145) mmol/L POC Potassium (3.3-5.0) mmol/L Potassium 4.0 (3.5-5.1) mmol/L POC Chloride (101-112) mmol/L Chloride 100 (98-107) mmol/L Carbon Dioxide 25 (21-32) mmol/L POC Total CO2 (24-31) mmol/L Anion Gap 8 (3-11) POC Anion Gap (16-25) mmol/L POC BUN (7-18) mg/dl BUN 11 (6-23) mg/dl Creatinine 0.97 (0.6-1.4) mg/dl POC Creatinine (0.6-1.3) mg/dl Est Cr Clr Drug Dosing Not Reportable Est GFR ( Amer) 104.3 ml/min Est GFR (Non-Af Amer) 90.0 ml/min BUN/Creatinine Ratio 11.3 (10-20) Glucose 109 H (70-99(Fasting)) mg/dl POC Glucose (other) (70-99) mg/dl Lactate (0.4-2.0) mmol/L Calcium 7.5 L (8.6-10.3) mg/dl POC Ioniz Calcium Eusebio (1.12-1.32) mmol/l Magnesium 1.6 L (1.7-2.4) mg/dl Total Bilirubin 0.8 (0.2-1.0) mg/dl Direct Bilirubin 0.0 (0-0.2) mg/dl AST 15 (13-39) U/L ALT 9 (7-52) U/L Alkaline Phosphatase 88 (34-104) U/L Troponin I High Sens 10.1 (0-20) pg/ml Total Protein 4.9 L (6.0-8.3) gm/dl Albumin 2.7 L (3.4-5.0) gm/dl Procalcitonin (0-0.5) ng/ml Adenovirus (PCR) (NotDetected) B. pertussis DNA (PCR) (NotDetected) B.parapertussis DNA PCR (NotDetected) C. pneumoniae DNA (PCR) (NotDetected) Coronavirus OC43 (PCR) (NotDetected) Coronavirus HKU1 (PCR) (NotDetected) Coronavirus 229E (PCR) (NotDetected) SARS-CoV-2 (PCR) (NotDetected) Coronavirus NL63 (PCR) (NotDetected) Human Metapneumovir PCR (NotDetected) Influenza Type A (PCR) (NotDetected) Influenza Type B (PCR) (NotDetected) M. pneumoniae (PCR) (NotDetected) Parainfluenza 1 (PCR) (NotDetected) Parainfluenza 2 (PCR) (NotDetected) Parainfluenza 3 (PCR) (NotDetected) Parainfluenza 4 (PCR) (NotDetected) RSV (PCR) (NotDetected) Entero/Rhino (PCR) (NotDetected) 01/24/23 01/24/23 01/24/23 Range/Units 16:47 16:47 16:55 WBC (4.8-10.8) K/ul RBC (4.70-6.10) M/uL Hgb (14.0-18.0) g/dl POC Hgb 11.2 L (14.0-18.0) g/dl Hct (42.0-52.0) % POC Hct 33 L (42-52) % MCV (80.0-100.0) fL MCH (25.0-34.0) pg MCHC (32.0-36.0) g/dL RDW Std Deviation (36.4-46.3) fL RDW Coeff of Liliana (11.5-14.5) % Plt Count (130-400) K/uL MPV (9.4-12.4) fL Immature Gran % (Auto) % Neut % (Auto) % Lymph % (Auto) % [place] % (Auto) % Eos % (Auto) % Baso % (Auto) % Neut # (Auto) (1.40-6.50) K/uL Lymph # (Auto) (1.2-3.4) K/uL [place] # (Auto) (0.11-0.59) K/uL Eos # (Auto) (0-0.50) K/uL Baso # (Auto) (0-0.2) K/uL Immature Gran # (Auto) (0.01-0.20) K/uL Hypochromasia Tear Drop Cells PT (9.0-12.0) Seconds INR (0.9-1.1) POC Sodium 132 L (135-144) mmol/L Sodium (136-145) mmol/L POC Potassium 4.0 (3.3-5.0) mmol/L Potassium (3.5-5.1) mmol/L POC Chloride 97 L (101-112) mmol/L Chloride (98-107) mmol/L Carbon Dioxide (21-32) mmol/L POC Total CO2 24 (24-31) mmol/L Anion Gap (3-11) POC Anion Gap 15.0 L (16-25) mmol/L POC BUN 8 (7-18) mg/dl BUN (6-23) mg/dl Creatinine (0.6-1.4) mg/dl POC Creatinine 1.0 (0.6-1.3) mg/dl Est Cr Clr Drug Dosing Est GFR ( Amer) ml/min Est GFR (Non-Af Amer) ml/min BUN/Creatinine Ratio (10-20) Glucose (70-99(Fasting)) mg/dl POC Glucose (other) 112 H (70-99) mg/dl Lactate 2.2 H* (0.4-2.0) mmol/L Calcium (8.6-10.3) mg/dl POC Ioniz Calcium Eusebio 1.11 L (1.12-1.32) mmol/l Magnesium (1.7-2.4) mg/dl Total Bilirubin (0.2-1.0) mg/dl Direct Bilirubin (0-0.2) mg/dl AST (13-39) U/L ALT (7-52) U/L Alkaline Phosphatase (34-104) U/L Troponin I High Sens (0-20) pg/ml Total Protein (6.0-8.3) gm/dl Albumin (3.4-5.0) gm/dl Procalcitonin 0.22 (0-0.5) ng/ml Adenovirus (PCR) (NotDetected) B. pertussis DNA (PCR) (NotDetected) B.parapertussis DNA PCR (NotDetected) C. pneumoniae DNA (PCR) (NotDetected) Coronavirus OC43 (PCR) (NotDetected) Coronavirus HKU1 (PCR) (NotDetected) Coronavirus 229E (PCR) (NotDetected) SARS-CoV-2 (PCR) (NotDetected) Coronavirus NL63 (PCR) (NotDetected) Human Metapneumovir PCR (NotDetected) Influenza Type A (PCR) (NotDetected) Influenza Type B (PCR) (NotDetected) M. pneumoniae (PCR) (NotDetected) Parainfluenza 1 (PCR) (NotDetected) Parainfluenza 2 (PCR) (NotDetected) Parainfluenza 3 (PCR) (NotDetected) Parainfluenza 4 (PCR) (NotDetected) RSV (PCR) (NotDetected) Entero/Rhino (PCR) (NotDetected) 01/24/23 Range/Units 17:00 WBC (4.8-10.8) K/ul RBC (4.70-6.10) M/uL Hgb (14.0-18.0) g/dl POC Hgb (14.0-18.0) g/dl Hct (42.0-52.0) % POC Hct (42-52) % MCV (80.0-100.0) fL MCH (25.0-34.0) pg MCHC (32.0-36.0) g/dL RDW Std Deviation (36.4-46.3) fL RDW Coeff of Liliana (11.5-14.5) % Plt Count (130-400) K/uL MPV (9.4-12.4) fL Immature Gran % (Auto) % Neut % (Auto) % Lymph % (Auto) % [place] % (Auto) % Eos % (Auto) % Baso % (Auto) % Neut # (Auto) (1.40-6.50) K/uL Lymph # (Auto) (1.2-3.4) K/uL [place] # (Auto) (0.11-0.59) K/uL Eos # (Auto) (0-0.50) K/uL Baso # (Auto) (0-0.2) K/uL Immature Gran # (Auto) (0.01-0.20) K/uL Hypochromasia Tear Drop Cells PT (9.0-12.0) Seconds INR (0.9-1.1) POC Sodium (135-144) mmol/L Sodium (136-145) mmol/L POC Potassium (3.3-5.0) mmol/L Potassium (3.5-5.1) mmol/L POC Chloride (101-112) mmol/L Chloride (98-107) mmol/L Carbon Dioxide (21-32) mmol/L POC Total CO2 (24-31) mmol/L Anion Gap (3-11) POC Anion Gap (16-25) mmol/L POC BUN (7-18) mg/dl BUN (6-23) mg/dl Creatinine (0.6-1.4) mg/dl POC Creatinine (0.6-1.3) mg/dl Est Cr Clr Drug Dosing Est GFR ( Amer) ml/min Est GFR (Non-Af Amer) ml/min BUN/Creatinine Ratio (10-20) Glucose (70-99(Fasting)) mg/dl POC Glucose (other) (70-99) mg/dl Lactate (0.4-2.0) mmol/L Calcium (8.6-10.3) mg/dl POC Ioniz Calcium Eusebio (1.12-1.32) mmol/l Magnesium (1.7-2.4) mg/dl Total Bilirubin (0.2-1.0) mg/dl Direct Bilirubin (0-0.2) mg/dl AST (13-39) U/L ALT (7-52) U/L Alkaline Phosphatase (34-104) U/L Troponin I High Sens (0-20) pg/ml Total Protein (6.0-8.3) gm/dl Albumin (3.4-5.0) gm/dl Procalcitonin (0-0.5) ng/ml Adenovirus (PCR) Not Detected (NotDetected) B. pertussis DNA (PCR) Not Detected (NotDetected) B.parapertussis DNA PCR Not Detected (NotDetected) C. pneumoniae DNA (PCR) Not Detected (NotDetected) Coronavirus OC43 (PCR) Not Detected (NotDetected) Coronavirus HKU1 (PCR) Not Detected (NotDetected) Coronavirus 229E (PCR) Not Detected (NotDetected) SARS-CoV-2 (PCR) Not Detected (NotDetected) Coronavirus NL63 (PCR) Not Detected (NotDetected) Human Metapneumovir PCR Not Detected (NotDetected) Influenza Type A (PCR) Not Detected (NotDetected) Influenza Type B (PCR) Not Detected (NotDetected) M. pneumoniae (PCR) Not Detected (NotDetected) Parainfluenza 1 (PCR) Not Detected (NotDetected) Parainfluenza 2 (PCR) Not Detected (NotDetected) Parainfluenza 3 (PCR) Not Detected (NotDetected) Parainfluenza 4 (PCR) Not Detected (NotDetected) RSV (PCR) Not Detected (NotDetected) Entero/Rhino (PCR) Not Detected (NotDetected) Administered Medications Magnesium Sulfate/Dextrose (Magnesium Sulfate / D5w) 1 gm in 100 mls @ 50 mls/hr IV Q2H NOEMÍ Stop: 01/25/23 03:44 Last Admin: 01/24/23 20:05 Dose: 50 mls/hr Documented By: HH Discontinued Medications Sodium Chloride (Nss 1000ml) 2,000 mls @ 999 mls/hr IV .Q2H1M ONE Stop: 01/24/23 18:29 Last Infusion: 01/24/23 20:05 Dose: 0 mls/hr Documented By: Admin: 01/24/23 16:50 Dose: 999 mls/hr Documented By: Piperacillin Sod/Tazobactam Sod (Zosyn) 4.5 gm in 120 mls @ 240 mls/hr IV NOW ONE Stop: 01/24/23 17:01 Last Infusion: 01/24/23 17:23 Dose: 0 mls/hr Documented By: Admin: 01/24/23 16:50 Dose: 240 mls/hr Documented By: Vancomycin HCl 2,000 mg/ (Sodium Chloride) 540 mls @ 200 mls/hr IV NOW ONE Stop: 01/24/23 19:13 Last Admin: 01/24/23 17:03 Dose: 200 mls/hr Documented By: Ibuprofen (Ibuprofen 200 Mg Tab) 400 mg PO NOW STA Stop: 01/24/23 16:29 Last Admin: 01/24/23 16:51 Dose: Not Given Documented By: Ioversol (Optiray 320 100ml) 85 ml IV ONCE ONE Stop: 01/24/23 17:24 Last Admin: 01/24/23 17:23 Dose: 85 ml Documented By: ROSARIO Imaging Data Radiologist's Impression: Chest X-Ray 01/24/23 16:20 XR chest 1V portable HISTORY: Sepsis COMPARISON: Chest and abdominal series 01/15/2023. FINDINGS: No pneumothorax. No pleural effusions. Mild elevation of the right hemidiaphragm, unchanged. Right jugular Port-A-Cath terminates in the SVC. The cardiac silhouette is normal in size. Small linear scarlike density at the left lung base remains unchanged. No new focal lung consolidations to suggest pneumonia. No evidence for pulmonary edema. A few right basilar linear densities are also unchanged and favor subsegmental atelectasis. Partially visualized percutaneous biliary catheter is noted. IMPRESSION: No significant change compared to the prior study. No acute process. ACT 112: Negative or not required by law. Electronically signed by: Trevor Lemons M.D. 01/24/2023 5:56 PM Abdomen/Pelvis CT 01/24/23 16:[address] WITH IV CONTRAST CT DOSE: 711.04 mGy.cm HISTORY: Generalized abdominal pain. Sepsis. TECHNIQUE: Multiaxial CT images of the abdomen and pelvis were performed following the use of intravenous contrast. A dose lowering technique was utilized adhering to the principles of ALARA. COMPARISON STUDY: Abdomen and pelvis CT 10/22/2022. FINDINGS: There is a catheter tip noted at the superior cavoatrial junction. Interval development of small bilateral pleural effusions. Subcentimeter pulmonary metastases are again noted. No pneumoperitoneum. No pneumatosis. No suspicious lytic or blastic osseous lesions. There is moderate body wall edema which has developed in the interval. Nonocclusive thrombus seen within the left common iliac vein which is new from the prior study. Normal caliber abdominal aorta. Mild bladder wall thickening with adjacent fat stranding. Colonic diver ticulosis. No evidence for acute diverticulitis. No evidence for a bowel obstruction. Normal appendix. The adrenal glands and pancreas unremarkable. There are few punctate stones within the kidneys. No hydronephrosis. There is again noted a large heterogeneous mass within the right side of the abdomen which is similar in size compared to the prior study. This mass measures up to 17 cm. This invades into the right kidney and liver. This abuts and compresses the gallbladder. The adjacent duodenum is narrowed. A percutaneous biliary catheter is unchanged in position. There is mass effect with possible invasion into the IVC. Trace ascites is noted within the pelvis. Multiple collateral vessels are again noted within the right side the abdomen. IMPRESSION: 1. Interval development of small bilateral pleural effusions and diffuse body wall edema. 2. Nonocclusive thrombus within the left common iliac vein which is new from the prior study. 3. Mild bladder wall thickening has progressed. Recommend correlation with ur inalysis to exclude a cystitis. 4. Redemonstration of the large mass within the right side of the abdomen with invasion and mass effect on the adjacent structures as described above. 5. A percutaneous biliary drainage catheter is unchanged in position. 6. Subcentimeter pulmonary metastases again noted. 7. Additional findings as described above. ACT 112: Negative or not required by law. Electronically signed by: Trevor Lemons M.D. 01/24/2023 5:51 PM Discharge Plan Visit Data Chief Complaint: Tachycardia Stated Complaint: REF BY DOC,HIGH HEART RATE,FEVER,DEHYDRATION, ED Provider: Ciro Carlin Discharge Problem: Sepsis, Anemia Patient Disposition: Admitted As Inpatient Discharge Instructions Interventions: ED Discharge Assessment Last Done: 01/24/23 19:53
[2023-01-24 17:06] LABS: iSTAT Hemoglobin 11.2 g/dl (14.0-18.0); iSTAT Ionized Calcium 1.11 mmol/l (1.12-1.32)
[2023-01-24 17:18] LABS: Hematocrit (blood only) 25.8 % (42.0-52.0); Hemoglobin 7.8 g/dl (14.0-18.0); Mean Corpuscular Hemoglobin 29.8 pg (25.0-34.0); Mean Corpuscular Hgb Conc 30.2 g/dL (32.0-36.0); Mean Corpuscular Volume 98.5 fL (80.0-100.0); Mean Platelet Volume 10.4 fL (9.4-12.4); Platelet Count 235 K/uL (130-400); RDW Coefficient of Variation 22.8 % (11.5-14.5); RDW Standard Deviation 81.7 fL (36.4-46.3); Red Blood Count 2.62 M/uL (4.70-6.10)
[2023-01-24] MEDS ORDERED: OPTIRAY 320 100ml IV ONE (17:23)
[2023-01-24 17:28] LABS: Alanine Aminotransferase 9 U/L (7-52); Albumin Level 2.7 gm/dl (3.4-5.0); Alkaline Phosphatase 88 U/L (34-104); Anion Gap 8 (3-11); Aspartate Aminotransferase 15 U/L (13-39); BUN Creatinine Ratio 11.3 (10-20); Bilirubin,Total 0.8 mg/dl (0.2-1.0); Blood Urea Nitrogen 11 mg/dl (6-23); Calcium 7.5 mg/dl (8.6-10.3); Carbon Dioxide 25 mmol/L (21-32); Chloride 100 mmol/L (98-107); Est GFR (African American) 104.3 ml/min; Glucose 109 mg/dl (70-99(Fasting)); Magnesium 1.6 mg/dl (1.7-2.4); Sodium 133 mmol/L (136-145); Total Protein 4.9 gm/dl (6.0-8.3)
[2023-01-24 17:34] LABS: Troponin I High Sensitivity 10.1 pg/ml (0-20)
[2023-01-24 17:37] LABS: INR 1.1 (0.9-1.1); Prothrombin Time 11.7 Seconds (9.0-12.0)
[2023-01-24 17:43] LABS: Basophils # (auto) 0.02 K/uL (0-0.2); Basophils % (auto) 0.2 %; Eosinophils # (auto) 0.01 K/uL (0-0.50); Eosinophils % (auto) 0.1 %; Hypochromasia Present; Immature Granulocytes # (auto) 0.07 K/uL (0.01-0.20); Immature Granulocytes % (auto) 0.7 %; Lymphocytes # (auto) 0.24 K/uL (1.2-3.4); Lymphocytes % (auto) 2.2 %; Monocytes % (auto) 1.9 %; Neutrophils # (auto) 10.16 K/uL (1.40-6.50); Neutrophils % (auto) 94.9 %; Tear Drop Cells 1+
--- NOTE | 2023-01-24 17:53 | CT Scan Report ---
ABDOMEN AND PELVIS CT WITH IV CONTRAST CT DOSE: 711.04 mGy.cm HISTORY: Generalized abdominal pain. Sepsis. TECHNIQUE: Multiaxial CT images of the abdomen and pelvis were performed following the use of intrave nous contrast. A dose lowering technique was utilized adhering to the principles of ALARA. COMPARISON STUDY: Abdomen and pelvis CT 10/22/2022. FINDINGS: There is a catheter tip noted at the superior cavoatrial junction. Interval development of small bilateral pleural effusions. Subcentimeter pulmonary metastases are again noted. No pneumoperit oneum. No pneumatosis. No suspicious lytic or blastic osseous lesions. There is moderate body wall ed otilia which has developed in the interval. Nonocclusive thrombus seen within the left common iliac vein which is new from the prior study. Normal caliber abdominal aorta. Mild bladder wall thickening with adjacent fat stranding. Colonic diverticulosis. No evidence for acute diverticulitis. No evidence fo r a bowel obstruction. Normal appendix. The adrenal glands and pancreas unremarkable. There are few p unctate stones within the kidneys. No hydronephrosis. There is again noted a large heterogeneous mass within the right side of the abdomen which is similar in size compared to the prior study. This mass measures up to 17 cm. This invades into the right kidney and liver. This abuts and compresses the ga llbladder. The adjacent duodenum is narrowed. A percutaneous biliary catheter is unchanged in positio n. There is mass effect with possible invasion into the IVC. Trace ascites is noted within the pelvis . Multiple collateral vessels are again noted within the right side the abdomen. IMPRESSION: 1. Interval development of small bilateral pleural effusions and diffuse body wall edema. 2. Nonocclusive thrombus within the left common iliac vein which is new from the prior study. 3. Mild bladder wall thickening has progressed. Recommend correlation with urinalysis to exclude a cy stitis. 4. Redemonstration of the large mass within the right side of the abdomen with invasion and mass effe ct on the adjacent structures as described above. 5. A percutaneous biliary drainage catheter is unchanged in position. 6. Subcentimeter pulmonary metastases again noted. 7. Additional findings as described above. ACT 112: Negative or not required by law. Electronically signed by: Trevor Lemons M.D. 01/24/2023 5:51 PM
--- NOTE | 2023-01-24 17:57 | XRay Report ---
XR chest 1V portable HISTORY: Sepsis COMPARISON: Chest and abdominal series 01/15/2023. FINDINGS: No pneumothorax. No pleural effusions. Mild elevation of the right hemidiaphragm, unchanged . Right jugular Port-A-Cath terminates in the SVC. The cardiac silhouette is normal in size. Small li near scarlike density at the left lung base remains unchanged. No new focal lung consolidations to boyer ggest pneumonia. No evidence for pulmonary edema. A few right basilar linear densities are also uncha nged and favor subsegmental atelectasis. Partially visualized percutaneous biliary catheter is noted. IMPRESSION: No significant change compared to the prior study. No acute process. ACT 112: Negative or not required by law. Electronically signed by: Trevor Lemons M.D. 01/24/2023 5:56 PM
[2023-01-24 18:12] LABS: Adenovirus PCR Not Detected (NotDetected); Bordetella parapertussis PCR Not Detected (NotDetected); Bordetella pertussis PCR Not Detected (NotDetected); Chlamydia pneumoniae PCR Not Detected (NotDetected); Coronavirus 229E PCR Not Detected (NotDetected); Coronavirus CoV-2 (COVID19)PCR Not Detected (NotDetected); Coronavirus HKU1 PCR Not Detected (NotDetected); Coronavirus NL63 PCR Not Detected (NotDetected); Coronavirus OC43PCR Not Detected (NotDetected); Human Metapneumovirus PCR Not Detected (NotDetected); Influenza A PCR Not Detected (NotDetected); Influenza B PCR Not Detected (NotDetected); Mycoplasma pneumoniae PCR Not Detected (NotDetected); Parainfluenza Virus 1 PCR Not Detected (NotDetected); Parainfluenza Virus 2 PCR Not Detected (NotDetected); Parainfluenza Virus 3 PCR Not Detected (NotDetected); Parainfluenza Virus 4 PCR Not Detected (NotDetected); Respiratory Syncytial VirusPCR Not Detected (NotDetected); Rhinovirus/Enterovirus PCR Not Detected (NotDetected)
--- NOTE | 2023-01-24 18:35 | History & Physical Report ---
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 Concern Sepsis in Immunocompromised Individual -on admit temp 38.1 HR 121 -WBC 10.7, lactate 2.2, procal wnl -CT abd: Interval development of small bilateral pleural effusions and diffuse body wall edema. Nonocclusive thrombus within the left common iliac vein which is new from the prior study. Mild bladder wall thickening has progressed. Recommend correlation with urinalysis to exclude a cystitis. Redemonstration of the large mass within the right side of the abdomen with invasion and mass effect on the adjacent structures as described above. A percutaneous biliary drainage catheter is unchanged in position. Subcentimeter pulmonary metastases again noted. -CXR wnl -respiratory panel negative -UA pending -blood culture pending -repeat lactate pending -received vanc and zosyn, 2L NSS in ED -will continue empiric vanc zosyn until blood cultures return -PRN tylenol Anemia -hbg 7.8 (prior around 10) -continue to monitor -transfuse if below 7 Edema of Abdomen -noted erythema on left and right side of abd -noted increase weight 85kg --> 97kg -use caution with fluid, bolus only if symptomatic -hold lasix at this time Hypomagnesium -Mg 1.6 -repleted, recheck in am Nonocclusive thrombus on left common iliac vein -continue lovenox Sarcoma on Chemotherapy -continue prophylactic acyclovir -continue PRN oxycodone, zofran, compazine -hold ciprofloxacin at this time while on zosyn vanc FENa: regular Code Status: full code DVT PPX: lovenox 100mg BID Dispo: PCU/Candis Lozano D.O. 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 Patient states on Saturday he saw oncology, they started him on lasix 20mg daily 5 days for increased swelling in his legs and abd, first dose started Saturday. Family and in home nurse have been tracking I/O's, noted output was significantly lower than input. Patient noted elevated temp last night fever tachycardia today, they called oncology who recommended they go to the ED for concerns dehydration. Of note patient was also started on lovenox BID this past Saturday for new found nonocclusive clot in his left common illiac vein. Patient had chemotherapy last dose Saturday. Patient notes a new right sided rash on his abd today, notes increased redness possible swelling but no noted pain or itching. He notes some increased swelling in his legs though they are better today, mild increased swelling in abd. He notes weakness that has been ongoing for a while. Notes a decreased appetite since yesterday. Patient describes a new mild productive cough starting yesterday, denies congestion. He states his biliary drain is draining normally. Denies any pain with urination or blood. Denies pain around biliary stent or chest port. Patient denies SOB N/V D/C pain elsewhere. Patient had biliary drain placed 10/07/22 at [facility], gets it changed every 6 weeks, next change will be this coming saturday. It was placed due to his abdominal mass compressing his gallbladder and liver preventing draining. Allergies Allergy/AdvReac Type Severity Reaction Status Date / Time No Known Allergies Allergy Verified 01/24/23 17:10 Home Medications Medication Instructions Recorded Confirmed Type acyclovir 400 mg tablet 400 mg PO BID 10/28/22 01/24/23 History ciprofloxacin HCl 500 mg tablet 500 mg PO BID 10/28/22 01/24/23 History diazepam 2 mg tablet 2 mg PO DAILY PRN Anxiety 10/28/22 01/24/23 History famotidine 20 mg tablet 20 mg PO BID 10/28/22 01/24/23 History loratadine 10 mg tablet 10 mg PO DAILY 10/28/22 01/24/23 History ondansetron HCl 8 mg tablet 8 mg PO TID PRN Nausea 10/28/22 01/24/23 History oxycodone 5 mg capsule 5 mg PO Q4H PRN Pain 10/28/22 01/24/23 History prochlorperazine maleate 10 mg 10 mg PO QID PRN Nausea 10/28/22 01/24/23 History tablet sodium chloride 0.9 % injection 10 ml TID 10/28/22 01/24/23 History syringe enoxaparin 100 mg/mL subcutaneous 0 mg subcut BID 01/24/23 01/24/23 History syringe furosemide 20 mg tablet 20 mg PO .DAILY FOR 5 DAYS 01/24/23 01/24/23 History Past Med/Surg History Medical History High cholesterol History of biliary stent insertion HTN (hypertension) Metabolic acidosis Sarcoma abdominal sarcoma diagnosed 04/2022 Umbilical hernia Surgical History History of biliary duct stent placement Family History Father Prostate cancer Social History Smoking Status: Never smoker Second Hand Exposure: Yes; Do You Dip or Chew Tobacco: No; Hx Alcohol Use: No Hx Substance Use: No Preferred Language: Stateless Communication Ability: Effective 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 Beliefs That Will Affect Care: None marital status: Current Living Situation: Spouse Current Living Situation Comment: two kids current occupational status: employed current occupation: [email or web address] Other Information That Helps Us Care for You: No Feels Safe at Home: Yes Safety Concerns: Feels Safe At This Time Assistive Devices: Glasses Physical Exam Constitutional: + ill appearing and cooperative Eyes: PERRL, conjunctivae normal, anicteric sclerae ENMT: external ear and nose normal, oropharynx normal Neck: trachea midline, no thyromegaly Respiratory: normal respiratory effort, lungs clear to auscultation Cardiovascular: Rate/Rhythm: regular rate and regular rhythm Extremities: + edema (mild, nonpitting) Gastrointestinal (Abdomen): Inspection/Auscultation: + abdomen distended and + abdominal surgical drain present (biliary drain in place on left abd) Percussion/Palpation: + abdomen firm; abdomen nontender Skin: increased erythema on left abd , no change in skin texture flat, indistinct borders from 12th rib to hip Results & Data Results & Data Vital Signs (Past 12 Hours) Vital Signs Temp Pulse Pulse Resp BP BP Pulse Ox 01/24/23 18:19 121 H 109/54 L 97 01/24/23 18:11 121 H 119/62 01/24/23 17:50 124 H 112/57 L 01/24/23 17:20 121 H 114/58 L 01/24/23 16:31 126 H 01/24/23 16:54 123 H 20 125/69 99 01/24/23 16:30 127 H 19 96/59 L 98 01/24/23 16:30 125 H 98 01/24/23 16:25 01/24/23 16:12 38.1 C H 141 H 18 105/65 97 O2 Del Method 01/24/23 18:19 Room Air 01/24/23 18:11 01/24/23 17:50 01/24/23 17:20 01/24/23 16:31 01/24/23 16:54 Room Air 01/24/23 16:30 Room Air 01/24/23 16:30 Room Air 01/24/23 16:25 Room Air 01/24/23 16:12 Room Air Supervising Physician Co-Signing Physician Notes I personally saw and examined the patient. I verified all gil points and agree with resident physician Dr Candis Pak, with the following exceptions and/or additions: 52 year old male presents to the ER on advice of his oncologist due to hypotension and fever. Chemotherapy on Saturday. Increased swelling over the last 5 days, not improving with lasix but has been causing a lot of urine output. No URI, urinary, GI infection symptoms. O/E A&Ox3, chronically ill appearing, HS tachycardic, regular rate, no murmurs, Chest CTAB, Abdomen with generalized edema with reactive erythema on bilateral flanks 3+ pitting from abdomen to both legs, L > R, no erythema surrounding biliary drain or port. A/P Sepsis - no definitive source on admission, UA pending but no urinary symptoms. Do NOT suspect cellulitis on exam. Fever may just be related to mass/chemotherapy but prudent to cover with antibiotics for 48 hours pending blood culture results. Hypotension - suspect related to intravascular depletion with possible sepsis and recent furosemide use. Resolved with IV fluid bolus. Given generalized anasarca and resolution of lactate will aim to just bolus intermittently as needed. Consider cortisol level if continued steroid boluses needed but for now appears stable and wish to avoid steroids in setting of possible sepsis. Anemia - ?related to chemotherapy vs. acute bleed from recently started Lovenox. No melena or bright red blood in stool. FOB ordered. Iron studies, B12, folate, retic count with next CBC trending q6h. Agree with transfusion threshold above. May need to hold Lovenox if decreasing. Left common iliac vein thrombus - recently seen on outpatient imaging and started on Lovenox for this Anasarca - UA pending to assess proteinuria, do not suspect cellulitis (erythema in flanks without clear outline and appears very related to dependant edema) Resident Activity Tracking Resident Involvement: Resident Care Provided Care Provided: Adult Hospital Medicine
[2023-01-24] MEDS ORDERED: PROCHLORPERAZINE MALEATE 10 MG TAB PO PRN (19:01)
[2023-01-24] MEDS ORDERED: oxyCODONE HCL IR 5 MG TAB (IMMEDIATE RELEASE) PO PRN (19:07)
[2023-01-24] MEDS ORDERED: ACETAMINOPHEN 325 MG TAB PO PRN (19:53)
[2023-01-24] MEDS ORDERED: ONDANSETRON INJ 2 MG/ML 2 ML VIAL IV PRN (19:53)
[2023-01-24] MEDS ORDERED: Patient's HEIGHT &/or WEIGHT Needed SCH (20:00)
[2023-01-24] MEDS: MAGNESIUM SULFATE / D5W 1 GM/100 ML BAG IV SCH ×2 (20:05→22:16)
[2023-01-24 20:08] LABS: Appearance Urine Clear (Clear); Bacteria Urine Automated Negative (Negative); Bilirubin Urine Negative (Negative); Blood Urine Negative (Negative); Color Urine Yellow; Glucose Urine UA Negative (Negative); Ketones Urine Negative (Negative); Leukocyte Esterase Urine Negative (Negative); Nitrite Urine Negative (Negative); Protein Urine 1+ (Negative); RBC Urine Automated 0-4 /hpf (0-4); Specific Gravity Urine 1.036 (1.000-1.030); Urobilinogen Urine Negative (Negative); pH Urine 5.5 (4.5-7.5)
--- NOTE | 2023-01-24 20:21 | Pharmacy Report ---
Pharmacy Vanc AUC Short Note - Date of Service January 24, 2023 - Assessment & Plan Assessment 52 year old M receiving vancomycin/Zosyn for treatment of empiric fever in a patient receiving chemotherapy. Day # 1 of antimicrobial therapy. Plan Vancomycin * AUC/TERI is the preferred PK/PD target for vancomycin * AUC guided dosing is effective and associated with decreased risk of nephrotoxicity compared to traditional trough targets * vancomycin 1250 mg IV q12 predicted to achieve target AUC/TERI of 400-600 mg/L.hr and may be associated with a 13 % risk of nephrotoxicity * Trough to be ordered if continued > 48 hours Pharmacy will continue to follow and will adjust dose/frequency as necessary. Thank you.
[2023-01-24] MEDS ORDERED: ENOXAPARIN 100 MG/1ML SYR SQ SCH (21:00)
[2023-01-24] MEDS ORDERED: SODIUM CHLORIDE 0.9% 250 ML IV PRN (21:18)
[2023-01-24] MEDS: PIPERACILLIN/TAZOBACTAM 4.5 GM in DEXTROSE 5% 100 ML IV SCH (22:19)
[2023-01-24] MEDS: FAMOTIDINE 20 MG TAB PO SCH (22:20)
[2023-01-24] MEDS: ACYCLOVIR 400 MG TAB PO SCH (22:20)
[2023-01-24 23:23] LABS: Reticulocyte % 2.8 % (0.5-2.0); Reticulocytes # 0.06 10^6/uL (0.02-0.10)
[2023-01-24 23:45] LABS: Hematocrit (blood only) 21.6 % (42.0-52.0); Hemoglobin 6.6 g/dl (14.0-18.0); Mean Corpuscular Hemoglobin 29.7 pg (25.0-34.0); Mean Corpuscular Hgb Conc 30.6 g/dL (32.0-36.0); Mean Corpuscular Volume 97.3 fL (80.0-100.0); Mean Platelet Volume 9.6 fL (9.4-12.4); Platelet Count 196 K/uL (130-400); RDW Coefficient of Variation 22.9 % (11.5-14.5); RDW Standard Deviation 79.7 fL (36.4-46.3); Red Blood Count 2.22 M/uL (4.70-6.10); White Blood Count 9.33 K/ul (4.8-10.8)
[2023-01-24 23:59] LABS: Ferritin 1416.2 ng/ml (8-388)
[2023-01-25] MEDS ORDERED: SODIUM CHLORIDE 0.9% 250 ML IV PRN ×3 (00:04→20:19)
[2023-01-25 00:05] LABS: Vitamin B12 > 1500 pg/ml (180-914)
[2023-01-25] MEDS: PANTOprazole 40 MG in SYRINGE 0 ML IV SCH ×3 (01:29→21:32)
[2023-01-25] MEDS: VANCOMYCIN HCL 1,250 MG in SODIUM CHLORIDE 0.9% 250 ML IV SCH ×2 (05:57→17:36)
[2023-01-25] MEDS: PIPERACILLIN/TAZOBACTAM 4.5 GM in DEXTROSE 5% 100 ML IV SCH ×3 (05:57→21:46)
[2023-01-25 06:51] LABS: Hematocrit (blood only) 22.5 % (42.0-52.0); Mean Corpuscular Hemoglobin 30.2 pg (25.0-34.0); Mean Corpuscular Hgb Conc 31.1 g/dL (32.0-36.0); Mean Platelet Volume 9.9 fL (9.4-12.4); Platelet Count 199 K/uL (130-400); Red Blood Count 2.32 M/uL (4.70-6.10)
[2023-01-25 07:06] LABS: Albumin Globulin Ratio 1.3 (0.9-2); Albumin Level 2.4 gm/dl (3.4-5.0); BUN Creatinine Ratio 10.1 (10-20); Calcium 6.9 mg/dl (8.6-10.3); Creatinine Clr Calc Pharmacy 104.4 ml/min; Est GFR (African American) 101.8 ml/min; Est GFR (Non-African American) 87.8 ml/min; Globulin 1.9 gm/dl (2.5-4.0); Magnesium 1.9 mg/dl (1.7-2.4); Potassium 3.7 mmol/L (3.5-5.1); Total Protein 4.3 gm/dl (6.0-8.3)
[2023-01-25 07:33] LABS: ALC (manual) 0.16 K/uL (1.2-3.4); ANC (manual) 7.84 K/uL (1.4-6.5); Lymphocytes # (manual) 0.16 K/uL (1.2-3.4); Lymphocytes % (manual) 2 %; Neutrophils # (manual) 7.84 K/uL (1.40-6.50); Neutrophils % (manual) 98 %; Polychromasia 1+; Tear Drop Cells 1+
[2023-01-25] MEDS: LORATADINE 10 MG TAB PO SCH (08:55)
[2023-01-25] MEDS: ACYCLOVIR 400 MG TAB PO SCH ×2 (08:55→21:32)
[2023-01-25] MEDS: FAMOTIDINE 20 MG TAB PO SCH ×2 (08:56→21:32)
[2023-01-25] MEDS ORDERED: STAT IV STA (09:14)
[2023-01-25] MEDS ORDERED: CALCIUM GLUCONATE 10% 1,000 MG in DEXTROSE 5% 50 ML IV ONE (09:30)
[2023-01-25] MEDS: ENOXAPARIN 100 MG/1ML SYR SQ SCH ×2 (09:43→21:32)
[2023-01-25 11:23] LABS: Hematocrit (blood only) 22.6 % (42.0-52.0); Mean Corpuscular Hemoglobin 30.3 pg (25.0-34.0); Mean Corpuscular Volume 97.8 fL (80.0-100.0); Platelet Count 200 K/uL (130-400); RDW Standard Deviation 76.2 fL (36.4-46.3); Red Blood Count 2.31 M/uL (4.70-6.10); White Blood Count 7.29 K/ul (4.8-10.8)
--- NOTE | 2023-01-25 11:41 | Billing Data ---
Date of Service January 24, 2023 Coding Level of Care Code 51613 INT INP/OBS CARE
[2023-01-25] MEDS: HEPARIN 100 UNIT/ML 5ML FLUSH FLUSH PRN (19:32)
--- NOTE | 2023-01-25 19:45 | Hospitalist Progress Note ---
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 Concern for sepsis in Immunocompromised Individual -on admit temp 38.1 HR 121, WBC 10.7 and not neutropenic, lactate 2.2, procal wnl, urinalysis without i nfection,respiratory bio fire panel negative Blood cultures drawn-no growth to date Does have a port in place-no evidence of infection at site of port Fever could be secondary to DVT Does have biliary drain in place but fluid does not appear cloudy or purulent, no erythema around insertion site, no abdominal pain, no diarrhea Last chemotherapy given on 01/22-unclear what his regimen is Chest x-ray negative CT abd/pelvis: With small bilateral pleural effusions, pulmonary metastases, moderate body wall edema, nonocclusive thrombus left common iliac vein, large heterogenous mass 17 cm and right side of abdomen similar in size compared to prior that invades into right kidney and liver, abuts and compresses gallbladder, narrows adjacent duodenum with possible invasion into the IVC. Multiple collateral vessels noted in right side of abdomen. Percutaneous biliary catheter unchanged in position. Lower extremities with some erythema but is likely secondary to massive edema and not cellulitis Remains tachycardic and borderline hypotensive-is intravascularly volume depleted despite massive anasarca. With severe anemia-transfusing Continue to follow blood cultures-no growth to date Continue empiric antibiotics with Zosyn and vancomycin until blood cultures negative for least 48 hours Follow CBC and transfuse as below (2) Anemia: Plan: Hemoglobin 7.8 on admission and after receiving IV fluids, decreased to 6.6. Hemoglobin was 8.9 on 01/22 at his oncology appointment prior to receiving chemotherapy Platelets and WBCs are normal B12 and folate normal, transferrin saturation 30%, ferritin elevated due to acute phase reactant at 1416 Likely anemia is due to antineoplastic effect cumulatively with chemotherapy for the last 4 months Status post 1 unit PRBCs on admission and hemoglobin only ziyad to 7.0-gave 1 more unit PRBCs on 01/25 No definite bleeding seen anywhere except had small amount of bright red blood coating the stool on 01/25 witnessed by nurse Is on Lovenox for acute DVT-continue for now His tumor is invading potentially into the IVC but doubtful he is having bleeding at this site or else he would likely have massive hemorrhage. No blood products seen on CT abdomen/pelvis on 01/24 Continue to follow CBC and transfuse a third unit PRBCs this evening as hemoglobin still low at 7.5 despite 2 units PRBCs Checked labs for hemolysis-LDH normal, haptoglobin pending, total bilirubin normal, reticulocyte count mildly elevated (3) Sarcoma: Plan: Sarcoma on Chemotherapy with metastases to the lungs and lymph nodes As above, last chemotherapy 01/22-unknown agents but typically used are doxorubicin and gemcitabine -continue prophylactic acyclovir -continue PRN oxycodone, zofran, compazine -hold ciprofloxacin at this time while on zosyn -Follows with [facility] oncology, but is also being followed by [facility] and there is consideration being made within this upcoming week for surgical debulking of his complex large retroperitoneal tumor which is invading the IVC, liver, kidney (4) Peripheral edema: Plan: Has anasarca from the flanks and abdomen down Check bilateral lower extremity venous Dopplers-negative for DVT With left common iliac DVT seen on CT scan earlier this week at [facility] and again at this facility on admission-was started on therapeutic dosing of Lovenox Noted increase weight 85kg --> 97kg Suspect significant edema is secondary to combination of IVC compression extrinsically from sarcoma as well as hypoalbuminemia and pelvic DVT Elevation of lower extremities when possible, no further IV fluids Hold off on Lasix as he has hypotension and tachycardia with intravascular volume depletion Consult vascular surgery to see if would be candidate for IVC stenting to relieve edema (5) Acute DVT (deep venous thrombosis): Plan: Nonocclusive thrombus on left common iliac vein -continue lovenox therapeutic dosing (6) Hypocalcemia: Plan: Likely secondary to poor p.o. intake Check vitamin D level Follow calcium levels Give 2 g IV calcium gluconate (7) Hyponatremia: Plan: Sodium 132 Likely secondary to intravascular volume depletion yet is obviously hypervolemic on exam Follow BMP (8) History of biliary duct stent placement: Plan: Stent appears to be in place on examination, draining Has appointment on Saturday at [facility] to have stent exchanged Plan Disposition-continued stay in PCU, prognosis is guarded overall Remains full code, but may benefit from goals of care discussion with palliative medicine given overall very poor prognosis Discussed care with at bedside on 01/25 Admission and Anticipated Discharge Date Admission Date: January 24, 2023 Subjective Patient less drowsy this afternoon but slept through most of the morning. No further fevers. He and his at the bedside note that his back and lower extremities have been much more swollen over the last few days. He had a bowel movement today that was brown in color and Hemoccult negative but the nurse did note some thin ribbons of red blood over it. Denies abdominal pain. Has a chronic cough not worse than previous. No chest pain or shortness of breath. Telemetry is sinus tachycardia rates in the 100s to 110s Physical Exam Constitutional: + ill appearing Respiratory: normal respiratory effort, lungs clear to auscultation Cardiovascular: Rate/Rhythm: regular rhythm and + tachycardic Heart Sounds: no murmur Extremities: + edema (3+ pitting edema to abdomen) Gastrointestinal (Abdomen): Inspection/Auscultation: normal bowel sounds; + abdomen abnormal to inspection (Biliary drain present draining bile) and abdomen not distended Percussion/Palpation: abdomen soft; abdomen nontender With significant pitting edema of the flanks and abdomen Skin: + erythema (Mild erythema of the left medial thigh, bilateral calves) Psychiatric: Orientation: alert, oriented x 3 and cooperative Results & Data Results & Data Vital Signs (Past 12 Hours) Vital Signs Temp Pulse Pulse Resp BP BP Pulse Ox 01/25/23 19:24 36.6 C 70 17 93/41 L 100 01/25/23 16:35 36.8 C 111 H 17 102/57 L 98 01/25/23 15:35 36.7 C 112 H 16 101/58 L 98 01/25/23 14:19 108 H 01/25/23 14:35 36.5 C 116 H 16 101/58 L 99 01/25/23 14:05 36.4 C L 110 H 16 100/60 98 01/25/23 13:50 36.6 C 110 H 17 104/62 98 01/25/23 13:35 36.8 C 111 H 16 107/63 98 01/25/23 12:22 36.5 C 109 H 17 109/66 97 01/25/23 08:08 36.7 C 108 H 16 108/68 97 O2 Del Method O2 Flow Rate 01/25/23 19:24 Room Air 01/25/23 16:35 0 01/25/23 15:35 01/25/23 14:19 01/25/23 14:35 01/25/23 14:05 0 01/25/23 13:50 01/25/23 13:35 01/25/23 12:22 Room Air 01/25/23 08:08 Room Air Laboratory Results CBC, BMP, B12, folate, lactate, reticulocyte count, magnesium level reviewed PG Care Time/CCT Total # of Minutes Spent Total Time Spent with Patient: Total time spent is greater than 50% in coordination of care (as documented) at patient's floor/unit and/or counseling patient: Coding Level of Care Code 09505 SUB INP/OBS CARE 3/50MIN Diagnoses SIRS (systemic inflammatory response syndrome) R65.10 Anemia D64.9 Sarcoma C49.9 Peripheral edema R60.9 Acute DVT (deep venous thrombosis) I82.409 Hypocalcemia E83.51 Hyponatremia E87.1 History of biliary duct stent placement Z98.890
[2023-01-25 20:16] LABS: Hematocrit (blood only) 23.9 % (42.0-52.0); Hemoglobin 7.5 g/dl (14.0-18.0); Mean Corpuscular Hemoglobin 29.8 pg (25.0-34.0); Mean Corpuscular Hgb Conc 31.4 g/dL (32.0-36.0); Mean Corpuscular Volume 94.8 fL (80.0-100.0); Mean Platelet Volume 10.3 fL (9.4-12.4); Platelet Count 213 K/uL (130-400); RDW Coefficient of Variation 22.4 % (11.5-14.5); RDW Standard Deviation 73.9 fL (36.4-46.3); Red Blood Count 2.52 M/uL (4.70-6.10)
--- NOTE | 2023-01-25 21:27 | Electrocardiogram Report ---
Test Reason : Blood Pressure : / mmHG Vent. Rate : 125 BPM Atrial Rate : 125 BPM P-R Int : 126 ms QRS Dur : 076 ms QT Int : 304 ms P-R-T Axes : 058 040 054 degrees QTc Int : 438 ms Sinus tachycardia Otherwise normal ECG When compared with ECG of 21-OCT-2022 23:18, Nonspecific T wave abnormality now evident in Anterior leads Confirmed by Uriel Swanson ([id number]) on 01/25/2023 9:26:52 PM Referred By: Jessica Clay Confirmed By:Uriel Swanson
[2023-01-25] MEDS: POLYETHYLENE (MIRALAX) 17 GM PACK PO PRN (21:44)
--- NOTE | 2023-01-25 21:56 | Ultrasound Report ---
ULTRASOUND BILATERAL LOWER EXTREMITY VENOUS CLINICAL HISTORY: Lower extremity edema. COMPARISON STUDY: Bilateral lower extremity venous ultrasound dated 01/11/2023 TECHNIQUE: Real-time, grayscale, and color Doppler sonography of the deep veins of the right and left lower extremity was performed from the inguinal crease to the calf. Compression and augmentation wer e utilized. FINDINGS: There is no sonographic evidence of deep venous thrombosis identified in the right or left lower extremity. The common femoral, superficial femoral, and popliteal veins are patent and normally compressible bilaterally. The greater saphenous vein and the profunda femoris vein at the junction w ith the common femoral vein are clear in both legs. The visualized calf veins are patent bilaterally. Soft tissue edema is seen in both legs. IMPRESSION: There is no sonographic evidence of deep venous thrombosis identified in the right or lef t lower extremity. ACT 112: Negative or not required by law. Electronically signed by: Julito Waldron M.D. 01/25/2023 9:53 PM
[2023-01-26] MEDS: PIPERACILLIN/TAZOBACTAM 4.5 GM in DEXTROSE 5% 100 ML IV SCH ×2 (05:30→14:26)
[2023-01-26] MEDS: VANCOMYCIN HCL 1,250 MG in SODIUM CHLORIDE 0.9% 250 ML IV SCH ×2 (05:31→17:07)
[2023-01-26 06:21] LABS: Albumin Globulin Ratio 1.1 (0.9-2); Albumin Level 2.5 gm/dl (3.4-5.0); BUN Creatinine Ratio 10.9 (10-20); Bilirubin,Total 0.7 mg/dl (0.2-1.0); Calcium 7.3 mg/dl (8.6-10.3); Creatinine Clr Calc Pharmacy 101.4 ml/min; Est GFR (African American) 99.4 ml/min; Est GFR (Non-African American) 85.7 ml/min; Globulin 2.3 gm/dl (2.5-4.0); Potassium 3.2 mmol/L (3.5-5.1); Total Protein 4.8 gm/dl (6.0-8.3)
[2023-01-26 06:22] LABS: Basophils # (auto) 0.03 K/uL (0-0.2); Basophils % (auto) 0.5 %; Eosinophils # (auto) 0.04 K/uL (0-0.50); Eosinophils % (auto) 0.7 %; Hematocrit (blood only) 26.6 % (42.0-52.0); Hemoglobin 8.6 g/dl (14.0-18.0); Immature Granulocytes # (auto) 0.05 K/uL (0.01-0.20); Immature Granulocytes % (auto) 0.8 %; Lymphocytes # (auto) 0.25 K/uL (1.2-3.4); Lymphocytes % (auto) 4.1 %; Mean Corpuscular Hemoglobin 29.8 pg (25.0-34.0); Mean Corpuscular Hgb Conc 32.3 g/dL (32.0-36.0); Mean Platelet Volume 10.3 fL (9.4-12.4); Monocytes # (auto) 0.26 K/uL (0.11-0.59); Monocytes % (auto) 4.3 %; Neutrophils # (auto) 5.48 K/uL (1.40-6.50); Neutrophils % (auto) 89.6 %; Platelet Count 211 K/uL (130-400); RDW Coefficient of Variation 21.7 % (11.5-14.5); RDW Standard Deviation 71.5 fL (36.4-46.3); Red Blood Count 2.89 M/uL (4.70-6.10); White Blood Count 6.11 K/ul (4.8-10.8)
[2023-01-26 06:44] LABS: Polychromasia 1+; Tear Drop Cells 1+
[2023-01-26] MEDS ORDERED: POTASSIUM CHLORIDE CRTAB 20 MEQ TABCR PO STA (07:58)
[2023-01-26] MEDS ORDERED: STAT IV STA (08:01)
[2023-01-26] MEDS ORDERED: CALCIUM GLUCONATE 10% 1,000 MG in SODIUM CHLORIDE 0.9% 50 ML IV ONE (08:30)
[2023-01-26] MEDS: LORATADINE 10 MG TAB PO SCH (09:01)
[2023-01-26] MEDS: ACYCLOVIR 400 MG TAB PO SCH ×2 (09:01→21:04)
[2023-01-26] MEDS: FAMOTIDINE 20 MG TAB PO SCH ×2 (09:01→21:04)
[2023-01-26] MEDS: PANTOprazole 40 MG in SYRINGE 0 ML IV SCH ×2 (09:02→21:05)
[2023-01-26] MEDS: CHOLECALCIFEROL 5,000 UNITS 125 MCG TAB PO SCH (09:02)
[2023-01-26] MEDS: ENOXAPARIN 100 MG/1ML SYR SQ SCH ×2 (09:02→21:04)
--- NOTE | 2023-01-26 17:11 | Hospitalist Progress Note ---
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 Concern for sepsis in Immunocompromised Individual -on admit temp 38.1 HR 121, WBC 10.7 and not neutropenic, lactate 2.2, procal wnl, urinalysis without infection,respiratory bio fire panel negative Blood cultures drawn-no growth through 24 hours Does have a port in place-no evidence of infection at site of port Does have biliary drain in place but fluid does not appear cloudy or purulent, no erythema around insertion site, no abdominal pain, no diarrhea Chest x-ray negative CT abd/pelvis: With small bilateral pleural effusions, pulmonary metastases, moderate body wall edema, nonocclusive thrombus left common iliac vein, large heterogenous mass 17 cm and right side of abdomen similar in size compared to prior that invades into right kidney and liver, abuts and compresses gallbladder, narrows adjacent duodenum with possible invasion into the IVC. Multiple collateral vessels noted in right side of abdomen. Percutaneous biliary catheter unchanged in position. Lower extremities with some erythema but is likely secondary to massive edema and not cellulitis Last chemotherapy given on 01/22-unclear what his regimen is Fever could be secondary to DVT Remains mildly tachycardic and borderline hypotensive-is intravascularly volume depleted despite massive anasarca. With anemia-transfusing Continue to follow blood cultures. Continue empiric antibiotics with Zosyn and vancomycin until blood cultures negative for least 48 hours (2) Anemia: Plan: Hemoglobin 7.8 on admission and after receiving IV fluids, decreased to 6.6. Hemoglobin was 8.9 on 01/22 at his oncology appointment prior to receiving chemotherapy Platelets and WBCs are normal B12 and folate normal, transferrin saturation 30%, ferritin elevated due to acute phase reactant at 1416 Likely anemia is due to antineoplastic effect cumulatively with chemotherapy for the last 4 months Status post 1 unit PRBCs on admission and hemoglobin only ziyad to 7.0-gave 2 more units PRBCs on 01/25 (total of 3 units thus far) No definite bleeding seen anywhere except had small amount of bright red blood coating the stool on 01/25 witnessed by nurse Is on Lovenox for acute DVT-continue for now His tumor is invading potentially into the IVC but doubtful he is having bleeding at this site or else he would likely have massive hemorrhage. No blood products seen on CT abdomen/pelvis on 01/24 Checked labs for hemolysis-LDH normal, haptoglobin pending, total bilirubin normal, reticulocyte count mildly elevated Follow CBC (3) Sarcoma: Plan: Sarcoma on Chemotherapy with metastases to the lungs and lymph nodes As above, last chemotherapy 01/22-unknown agents but typically used are doxorubicin and gemcitabine -continue prophylactic acyclovir -continue PRN oxycodone, zofran, compazine -hold ciprofloxacin at this time while on zosyn -Follows with [facility], but is also being followed by [facility] and there is consideration being made within this upcoming week for surgical debulking of his complex large retroperitoneal tumor which is invading the IVC, liver, kidney (4) Peripheral edema: Plan: Has anasarca from the flanks and abdomen down Check bilateral lower extremity venous Dopplers-negative for DVT With left common iliac DVT seen on CT scan earlier this week at [facility] and again at this facility on admission-was started on therapeutic dosing of Lovenox Noted increase weight 85kg --> 97kg Suspect significant edema is secondary to combination of IVC compression extrinsically from sarcoma as well as hypoalbuminemia and pelvic DVT Elevation of lower extremities when possible, no further IV fluids Hold off on Lasix as he has hypotension and tachycardia with intravascular volume depletion Consult vascular surgery to see if would be candidate for IVC stenting to relieve edema --> not available on weekends at [place]. Perhaps this could be done at [facility] when he is down there for biliary duct stent exchange? (5) Acute DVT (deep venous thrombosis): Plan: Nonocclusive thrombus on left common iliac vein -continue lovenox therapeutic dosing (6) Hypocalcemia: Plan: Likely secondary to poor p.o. intake Check vitamin D level --> low. Started on 5,000 IU daily supplement Follow calcium levels Give 2 g IV calcium gluconate (7) Hyponatremia: Plan: Sodium 132 Likely secondary to intravascular volume depletion yet is obviously hypervolemic on exam Follow BMP (8) History of biliary duct stent placement: Plan: Stent appears to be in place on examination, draining Has appointment on 01/28/23 at [place] to have stent exchanged Plan Disposition-continued stay in PCU, prognosis is guarded overall. Plan to discharge on 01/27/23 so long as blood cultures neg through 48 hours an hgb has stabilized --> family to then drive to [facility] Remains full code, but may benefit from goals of care discussion with palliative medicine given overall very poor prognosis Discussed care with at bedside on 01/25 Admission and Anticipated Discharge Date Admission Date: January 24, 2023 Subjective No acute events overnight. Patient feeling better today. Plan to drive to [facility] on Saturday night as he is having biliary stent exchanged there on 01/28/23. Review of Systems Review of Systems: All systems reviewed & are unremarkable except as noted in HPI & below Physical Exam Constitutional: WD/WN, vitals as above no acute distress Eyes: + anicteric sclerae ENMT: external ear and nose normal, oropharynx normal Neck: trachea midline Respiratory: normal respiratory effort, lungs clear to auscultation no cough Cardiovascular: Rate/Rhythm: regular rate and regular rhythm Heart Sounds: normal S1 and normal S2; no murmur Gastrointestinal (Abdomen): normal bowel sounds, soft, nontender, no hepatosplenomegaly Musculoskeletal: Head/Neck/Chest: normocephalic and head atraumatic Skin: no rashes, warm and dry Neurologic: moves all extremities Psychiatric: A+Ox3, euthymic affect Results & Data Results & Data Vital Signs (Past 12 Hours) Vital Signs Temp Pulse Pulse Resp BP Pulse Ox O2 Del Method 01/26/23 16:45 36.8 C 106 H 16 99/57 L 98 Room Air 01/26/23 13:10 93 H 01/26/23 12:05 36.4 C L 104 H 16 117/69 98 Room Air 01/26/23 07:36 36.9 C 60 16 183/89 H 96 Room Air PG Care Time/CCT Total # of Minutes Spent Total Time Spent with Patient: Total time spent is greater than 50% in coordination of care (as documented) at patient's floor/unit and/or counseling patient: Coding [place] [address] SUB INP/OBS CARE 2/35MIN Patient Type Established Diagnoses SIRS (systemic inflammatory response syndrome) R65.10 Anemia D64.9 Sarcoma C49.9 Peripheral edema R60.9 Acute DVT (deep venous thrombosis) I82.409 Hypocalcemia E83.51 Hyponatremia E87.1 History of biliary duct stent placement Z98.890
[2023-01-26] MEDS: HEPARIN 100 UNIT/ML 5ML FLUSH FLUSH PRN ×2 (19:26→21:06)
[2023-01-26] MEDS: POLYETHYLENE (MIRALAX) 17 GM PACK PO PRN (19:43)
[2023-01-26 21:34] LABS: Hematocrit (blood only) 26.2 % (42.0-52.0); Hemoglobin 8.3 g/dl (14.0-18.0)
[2023-01-27 06:42] LABS: Basophils # (auto) 0.04 K/uL (0-0.2); Eosinophils # (auto) 0.02 K/uL (0-0.50); Eosinophils % (auto) 0.5 %; Hematocrit (blood only) 26.8 % (42.0-52.0); Hemoglobin 8.5 g/dl (14.0-18.0); Immature Granulocytes # (auto) 0.03 K/uL (0.01-0.20); Immature Granulocytes % (auto) 0.8 %; Lymphocytes % (auto) 7.7 %; Mean Corpuscular Hgb Conc 31.7 g/dL (32.0-36.0); Mean Corpuscular Volume 94.7 fL (80.0-100.0); Mean Platelet Volume 9.8 fL (9.4-12.4); Monocytes # (auto) 0.27 K/uL (0.11-0.59); Monocytes % (auto) 6.9 %; Neutrophils # (auto) 3.23 K/uL (1.40-6.50); Neutrophils % (auto) 83.1 %; Platelet Count 192 K/uL (130-400); RDW Coefficient of Variation 21.7 % (11.5-14.5); RDW Standard Deviation 73.1 fL (36.4-46.3); Red Blood Count 2.83 M/uL (4.70-6.10); White Blood Count 3.89 K/ul (4.8-10.8)
[2023-01-27 06:54] LABS: BUN Creatinine Ratio 8.5 (10-20); Creatinine Clr Calc Pharmacy 126.6 ml/min; Est GFR (African American) 118.7 ml/min; Est GFR (Non-African American) 102.4 ml/min; Phosphorus 2.1 mg/dl (2.5-4.9); Potassium 3.4 mmol/L (3.5-5.1)
[2023-01-27 07:05] LABS: Anisocytosis Present; Polychromasia 1+; Tear Drop Cells 1+
--- NOTE | 2023-01-27 07:35 | Hospitalist Progress Note ---
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 On admit temp 38.1 HR 121, WBC 10.7 and not neutropenic, lactate 2.2, procal wnl, urinalysis without infection,respiratory bio fire panel negative Remains mildly tachycardic and borderline hypotensive - is intravascularly volume depleted despite massive anasarca. In patient with immunocompromised status Does have a port in place without evidence of infection Does have biliary drain in place but fluid does not appear cloudy or purulent, no erythema around insertion site, no abdominal pain, no diarrhea Chest x-ray negative CT abd/pelvis: Small bilateral pleural effusions, pulmonary metastases, moderate body wall edema, nonocclusive thrombus left common iliac vein, large heterogenous mass 17 cm and right side of abdomen similar in size compared to prior that invades into right kidney and liver, abuts and compresses gallbladder, narrows adjacent duodenum with possible invasion into the IVC. Multiple collateral vessels noted in right side of abdomen. Percutaneous biliary catheter unchanged in position. Lower extremities with some erythema bilaterally suspected 2/2 anasarca not cellulitis Last chemotherapy given on 01/22 - unknown regimen BCx NGTD x48 hours, stop Abx (no fever since 01/24, perhaps 2/2 chemotherapy vs. DVT?) (2) Anemia: Plan: Hemoglobin 7.8 on admission and after receiving IV fluids, decreased to 6.6. Hemoglobin was 8.9 on 01/22 at his oncology appointment prior to receiving chemotherapy With normal plts, leukopenia without neutropenia today B12 and folate normal, transferrin saturation 30%, ferritin elevated due to acute phase reactant at 1416 Checked labs for hemolysis - LDH normal, total bilirubin normal, reticulocyte count mildly elevated His tumor is invading potentially into the IVC but doubtful he is having bleeding at this site or else he would likely have massive hemorrhage. No blood products seen on CTAP on 01/24 Likely anemia is due to antineoplastic effect cumulatively with chemotherapy for the last 4 months Has received total of 3U PRBCs this admission for Hgb as low as 6.0 without evidence of bleeding, now stable x36 hours at ~8.5 Is on Lovenox for acute DVT - continue for now (3) Sarcoma: Plan: Sarcoma on Chemotherapy with metastases to the lungs and lymph nodes As above, last chemotherapy 5/2 - unknown agents Continue prophylactic acyclovir and Cipro Continue PRN oxycodone, zofran, compazine Follows with [facility], but is also being followed by [facility] and there is consideration being made within this upcoming week for surgical debulking of his complex large retroperitoneal tumor which is invading the IVC, liver, kidney (4) Peripheral edema: Plan: Has anasarca from the flanks and abdomen down Bilateral LE venous Dopplers negative for DVT With left common iliac DVT seen on CT scan earlier this week at [facility] and again at this facility on admission - cont therapeutic Lovenox Noted increase weight 85kg --> 100kg Suspect significant edema is secondary to combination of IVC compression extrinsically from sarcoma as well as hypoalbuminemia and pelvic DVT Elevation of lower extremities when possible, no further IV fluids Hold off on Lasix as he has hypotension and tachycardia with intravascular volum e depletion Consult vascular surgery Saturday to see if would be candidate for IVC stenting to relieve edema --> not available on weekends at [facility]. Perhaps this could be done at [facility] when he is down there for biliary duct stent exchange? (5) Acute DVT (deep venous thrombosis): Plan: Nonocclusive thrombus on left common iliac vein Continue Lovenox therapeutic dosing (6) Hypocalcemia: Plan: Likely secondary to poor p.o. intake With undetectable vitamin D level -> started on 5,000 IU daily supplement Follow outpatient (7) Hyponatremia: Plan: Sodium 135, has had mild hypoNa this admit Likely secondary to intravascular volume depletion Follow BMP (8) History of biliary duct stent placement: Plan: Stent appears to be in place on examination, draining Has appointment on 01/28/23 at [facility] to have stent exchanged Admission and Anticipated Discharge Date Admission Date: January 24, 2023 Results & Data Results & Data Vital Signs (Past 12 Hours) Vital Signs Temp Pulse Pulse Resp BP Pulse Ox O2 Del Method 01/27/23 07:12 96 H 01/27/23 05:53 115 H 01/27/23 03:56 36.5 C 101 H 16 104/59 L 97 Room Air 01/26/23 23:16 36.7 C 110 H 18 99/57 L 96 Room Air 01/26/23 19:49 36.9 C 115 H 18 101/55 L 98 Room Air PG Care Time/CCT Total # of Minutes Spent Total Time Spent with Patient: Total time spent is greater than 50% in coordination of care (as documented) at patient's floor/unit and/or counseling patient: Coding Diagnoses SIRS (systemic inflammatory response syndrome) R65.10 Anemia D64.9 Sarcoma C49.9 Peripheral edema R60.9 Acute DVT (deep venous thrombosis) I82.409 Hypocalcemia E83.51 Hyponatremia E87.1 History of biliary duct stent placement Z98.890
--- NOTE | 2023-01-27 07:46 | Discharge Summary ---
Discharge Summary Date of Service January 27, 2023 Admission HPI Per Admitting Provider 52yo Male with PMH sarcoma in right abd on chemotherapy, s/p percutaneous biliary stent sent to ED by oncologist for concerns fever tachycardia. Patient states on Saturday he saw oncology, they started him on lasix 20mg daily 5 days for increased swelling in his legs and abd, first dose started Saturday. Family and in home nurse have been tracking I/O's, noted output was significantly lower than input. Patient noted elevated temp last night fever tachycardia today, they called oncology who recommended they go to the ED for concerns dehydration. Of note patient was also started on lovenox BID this past Saturday for new found nonocclusive clot in his left common illiac vein. Patient had chemotherapy last dose Saturday. Patient notes a new right sided rash on his abd today, notes increased redness possible swelling but no noted pain or itching. He notes some increased swelling in his legs though they are better today, mild increased swelling in abd. He notes weakness that has been ongoing for a while. Notes a decreased appetite since yesterday. Patient describes a new mild productive cough starting yesterday, denies congestion. He states his biliary drain is draining normally. Denies any pain with urination or blood. Denies pain around biliary stent or chest port. Patient denies SOB N/V D/C pain elsewhere. Patient had biliary drain placed 10/07/22 at [facility], gets it changed every 6 weeks, next change will be this coming saturday. It was placed due to his abdominal mass compressing his gallbladder and liver preventing draining. Admission Exam Per Admitting Provider Constitutional: + ill appearing and cooperative Eyes: PERRL, conjunctivae normal, anicteric sclerae ENMT: external ear and nose normal, oropharynx normal Neck: trachea midline, no thyromegaly Respiratory: normal respiratory effort, lungs clear to auscultation Cardiovascular: Rate/Rhythm: regular rate and regular rhythm Extremities: + edema (mild, nonpitting) Gastrointestinal (Abdomen): Inspection/Auscultation: + abdomen distended and + abdominal surgical drain present (biliary drain in place on left abd) Percussion/Palpation: + abdomen firm; abdomen nontender Skin: increased erythema on left abdomen, no change in skin texture flat, indistinct borders from 12th rib to hip Principal Dx & Hospital Course #1 = Principal Diagnosis (1) SIRS (systemic inflammatory response syndrome): (2) Anemia: (3) Sarcoma: (4) Peripheral edema: (5) Acute DVT (deep venous thrombosis): (6) Hypocalcemia: (7) Hyponatremia: (8) History of biliary duct stent placement: Plan 52-year-old male with Hx 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 SIRS (systemic inflammatory response syndrome): On admit temp 38.1 HR 121, WBC 10.7 and not neutropenic, lactate 2.2, procal wnl, urinalysis without infection,respiratory bio fire panel negative Remains mildly tachycardic and borderline hypotensive - is intravascularly volume depleted despite massive anasarca In patient with immunocompromised status Does have a port in place without evidence of infection Does have biliary drain in place but fluid does not appear cloudy or purulent, no erythema around insertion site, no abdominal pain, no diarrhea Chest x-ray negative CT abd/pelvis: Small bilateral pleural effusions, pulmonary metastases, moderate body wall edema, nonocclusive thrombus left common iliac vein, large heterogenous mass 17 cm and right side of abdomen similar in size compared to prior that invades into right kidney and liver, abuts and compresses gallbladder, narrows adjacent duodenum with possible invasion into the IVC. Multiple collateral vessels noted in right side of abdomen. Percutaneous biliary catheter unchanged in position. Lower extremities with some erythema bilaterally suspected 2/2 anasarca not cellulitis Last chemotherapy given on 01/22 - unknown regimen BCx NGTD x48 hours, stop Abx (no fever since 01/24, perhaps 2/2 chemotherapy vs. DVT?) Anemia: Hemoglobin 7.8 on admission and after receiving IV fluids, decreased to 6.6. Hemoglobin was 8.9 on 01/22 at his oncology appointment prior to receiving chemotherapy With normal plts, leukopenia without neutropenia today B12 and folate normal, transferrin saturation 30%, ferritin elevated due to acute phase reactant at 1416 Checked labs for hemolysis - LDH normal, total bilirubin normal, reticulocyte count mildly elevated His tumor is invading potentially into the IVC but doubtful he is having bleeding at this site or else he would likely have massive hemorrhage. No blood products seen on CTAP on 01/24 Likely anemia is due to antineoplastic effect cumulatively with chemotherapy for the last 4 months Has received total of 3U PRBCs this admission for Hgb as low as 6.0 without evidence of bleeding, now stable x36 hours at ~8.5; CBC on to continue to monitor Sarcoma: Sarcoma on Chemotherapy with metastases to the lungs and lymph nodes As above, last chemotherapy 01/22 - unknown agents Continue prophylactic acyclovir and Cipro Follows with [facility], but is also being followed by [facility] and there is consideration being made within this upcoming week for surgical debulking of his complex large retroperitoneal tumor which is invading the IVC, liver, kidney Peripheral edema: Has anasarca from the flanks and abdomen down, improved some per since admission Bilateral LE venous Dopplers negative for DVT With left common iliac DVT seen on CT scan earlier this week at [facility] and again at this facility on admission - cont therapeutic Lovenox Suspect significant edema is secondary to combination of IVC compression extrinsically from sarcoma as well as hypoalbuminemia and pelvic DVT; eval by Onc tomorrow as described Acute DVT (deep venous thrombosis): Nonocclusive thrombus on left common iliac vein Continue Lovenox therapeutic dosing Hypocalcemia: Likely secondary to poor p.o. intake With undetectable vitamin D level -> started on 5,000 IU daily supplement Follow outpatient Hyponatremia: Sodium 135, has had mild hypoNa this admit Likely secondary to intravascular volume depletion History of biliary duct stent placement: Stent appears to be in place on examination, draining Has appointment on 01/28/23 at [facility] to have stent exchanged Discharge Exam Constitutional WD/WN, vitals as above Respiratory normal respiratory effort, lungs clear to auscultation Cardiovascular RRR, no murmur, no edema Gastrointestinal (Abdomen) biliary drainage clear, green-colored Skin no erythema or tenderness at port site Updated Medication List Medication Instructions Recorded Confirmed Type acyclovir 400 mg tablet 400 mg PO BID 10/28/22 01/24/23 History ciprofloxacin HCl 500 mg tablet 500 mg PO BID 10/28/22 01/24/23 History diazepam 2 mg tablet 2 mg PO DAILY PRN Anxiety 10/28/22 01/24/23 History famotidine 20 mg tablet 20 mg PO BID 10/28/22 01/24/23 History loratadine 10 mg tablet 10 mg PO DAILY 10/28/22 01/24/23 History ondansetron HCl 8 mg tablet 8 mg PO TID PRN Nausea 10/28/22 01/24/23 History oxycodone 5 mg capsule 5 mg PO Q4H PRN Pain 10/28/22 01/24/23 History prochlorperazine maleate 10 mg 10 mg PO QID PRN Nausea 10/28/22 01/24/23 History tablet sodium chloride 0.9 % injection 10 ml TID 10/28/22 01/24/23 History syringe enoxaparin 100 mg/mL subcutaneous 0 mg subcut BID 01/24/23 01/24/23 History syringe furosemide 20 mg tablet 20 mg PO .DAILY FOR 5 DAYS 01/24/23 01/24/23 History cholecalciferol (vitamin D3) 125 5,000 unit PO QAM #30 tabs 01/27/23 Rx mcg (5,000 unit) tablet Hospital Stay Data Consultations 01/24/23 17:55 ED Decision to Admit Stat 01/25/23 19:43 Consult Vascular Surgery Routine Diagnostic Imagining Performed 01/24/23 16:33 CT Abd and Pelvis [CT abd pelvis IV con only] Stat 01/25/23 19:43 US venous doppler LE BI Stat Pending Results Patient Have Any Pending Studies at Discharge: No Discharge Instructions Given to Patient (Per Discharging Provider) You were admitted for evaluation of both anemia and fevers. You were dehydrated in your blood vessels, which can be difficult to tell when someone has lower leg swelling. Your signs of dehydration improved with blood products. We believe that your blood count was low due to your recent chemo and cancer. You did not have any other concerning signs of bleeding. Your blood cultures were negative, meaning no evidence of blood infection. You also did not have any other convincing sites of infection. At this time, we believe that your fevers were due to a combination of your chemo and your DVT. You home antibiotics were continued but all other antibiotics were stopped. You should resume all home medications. Your vitamin D level was low. You should take over the counter vitamin D, 5000 IU daily and have your family doctor check your levels outside the hospital. Labwork ordered for to include CBC and BMP. This should go to your family doctor and the oncologist. If you have any return of fevers that is concerning, or signs of low blood count like feeling like you will pass out, or chest pain / trouble breathing, please seek urgent medical attention. Otherwise, please keep your scheduled follow up with your Oncologist and your family doc. Total Time Total Time Spent Total Time Spent (In Minutes): 45 min Coding Level of Care Code 77498 INP/OBS DISCH >30 MIN Diagnoses SIRS (systemic inflammatory response syndrome) R65.10 Anemia D64.9 Sarcoma C49.9 Peripheral edema R60.9 Acute DVT (deep venous thrombosis) I82.409 Hypocalcemia E83.51 Hyponatremia E87.1 History of biliary duct stent placement Z98.890
[2023-01-27] MEDS: FAMOTIDINE 20 MG TAB PO SCH (08:08)
[2023-01-27] MEDS: CHOLECALCIFEROL 5,000 UNITS 125 MCG TAB PO SCH (08:09)
[2023-01-27] MEDS: ACYCLOVIR 400 MG TAB PO SCH (08:09)
[2023-01-27] MEDS: LORATADINE 10 MG TAB PO SCH (08:09)
[2023-01-27] MEDS: PANTOprazole 40 MG in SYRINGE 0 ML IV SCH (08:10)
[2023-01-27] MEDS: ENOXAPARIN 100 MG/1ML SYR SQ SCH (08:10)
[2023-01-27] MEDS ORDERED: CIPROFLOXACIN 500 MG TAB PO SCH (09:00)
== END 2023-01-27 13:40 | disposition home or self-care (01) | DRG 864 ==
LOC: ED 16:08 → EDINP 18:50 → SUATTDRO 18:50 → 2S 19:53